=== PATIENT | male | born 1945 | race African-American/Black ===

== ENCOUNTER 2018-06-14 11:24 | Inpatient (IN) | payer MEDICARE ==
[~2018-06-14] VITALS: Ht 193 cm; Wt 81.9 kg
[2018-06-14] MEDS ORDERED: IMODIUM2 MG PO (11:40)
[2018-06-14] MEDS ORDERED: NITROSTAT0.4 MG SL (11:40)
[2018-06-14] MEDS ORDERED: PROMACTA25 MG PO (11:41)
[2018-06-14] MEDS ORDERED: NASONEX NASAL S17 GM NS (11:41)
[2018-06-14] MEDS ORDERED: BUMEX2 MG PO (11:42)
[2018-06-14] MEDS ORDERED: TRAZODONE HCL150 MG PO (11:43)
[2018-06-14] MEDS ORDERED: CATAPRES0.1 MG PO (11:43)
[2018-06-14] MEDS ORDERED: VERELAN180 MG PO (11:43)
[2018-06-14] MEDS ORDERED: PROTONIX40 MG PO (11:43)
[2018-06-14] MEDS ORDERED: RENVELA800 MG PO (11:44)
[2018-06-14] MEDS ORDERED: HUMULIN N100 U/ML SC (11:44)
[2018-06-14] MEDS ORDERED: PLAVIX75 MG PO (11:44)
[2018-06-14] MEDS ORDERED: LEVOXYL50 MCG PO (11:45)
[2018-06-14] MEDS ORDERED: CHRONULAC30 ML PO (11:45)
[2018-06-14] MEDS ORDERED: FLOMAX0.4 MG PO (11:45)
[2018-06-14] MEDS ORDERED: LIPITOR10 MG PO (11:46)
[2018-06-14] MEDS ORDERED: TYLENOL W/CODEI1 TAB PO (11:46)
--- NOTE | 2018-06-14 13:19 | NUR ---
RECEIVED REPORT FROM DARÍO IN ER.
--- NOTE | 2018-06-14 13:48 | NUR ---
RECEIVED PT TO ROOM 2105 VIA STRETCHER PT WAS ABLE TO AMBULATE FROM STRETCHER TO BED WITH ASSISTANCE, HAS UNSTEADY GATE. RT WRIST IV SL. FISTULA NOTED TO LT UPPER ARM. PT A/O X4, RESP EVEN AND NONLABORED ON RA. PT DENIES ANY CHEST PAIN AT THIS TIME. STATES THAT HE NEVER HAD CHEST PAIN. PT USES MAIL ORDER TO GET MEDICATIONS, PHARMACY LEFT BLANK. ORIENTED PT TO ROOM AND CALL LIGHT, DIALYSIS NURSE AT BEDSIDE, FIXING TO START DIALYSIS ON PT. WILL START PLAN OF CARE.
[2018-06-14 14:15] VITALS: BP 209/89; BMI 22.3
[2018-06-14 15:30] VITALS: BP 157/72
--- NOTE | 2018-06-14 16:55 | NUR ---
CALLED PHAN AND JASMINED HER THAT I NEED NPH FOR PT.
--- NOTE | 2018-06-14 19:30 | NUR ---
RECEIVED REPORT, WILL ASSUME CARE OF PT, ASKING FOR HEAT TO BE AJUSTED, BED IS LOW, SRX2, CALL LIGHT IN REACH, WILL CONTINUE PLAN OF CARE
[2018-06-14 20:00] VITALS: BP 144/55
[2018-06-14] MEDS ORDERED: NEURONTIN 300300 MG PO (21:13)
--- NOTE | 2018-06-14 22:47 | NUR ---
COMPLAINS OF PAIN, GAVE TYLENOL-CODIINE ORDER
[2018-06-15] VITALS: BP 136/55
[2018-06-15 04:00] VITALS: BP 145/56
[2018-06-15 05:11] LABS: BASOPHILS 0.4 % (0-2); EOSINOPHILS 1.6 % (0-7); HEMATOCRIT 32.1 % (42.0-54.0); HEMOGLOBIN 10.6 g/dL (13.5-17.5); IMMATURE GRANULOCYTES 0.2 % (0-5); LYMPHOCYTES 8.4 % (15-50); MCH 25.3 pg (26.0-34.0); MCV 76.6 fL (80.0-100.0); MEAN PLATELET VOLUME 10.7 fL (7.4-10.4); MONOCYTES 6.9 % (2-11); NEUTROPHILS 82.5 % (40-80); PLATELET COUNT 220 10x3/uL (130-400); RBC 4.19 10x6/uL (4.20-6.10); RDW 16.8 % (11.5-14.5); WBC 5.1 10x3/uL (4.8-10.8)
[2018-06-15 06:00] LABS: ALBUMIN 3.3 g/dL (3.4-5.0); ANION GAP 15.9 mmol/L (8-16); BILIRUBIN - DIRECT 0.12 mg/dL (0.00-0.30); BILIRUBIN - INDIRECT 0.31 mg/dL (0.00-1.00); BILIRUBIN - TOTAL 0.43 mg/dL (0.2-1.3); CALCIUM 9.2 mg/dL (8.5-10.1); CARBON DIOXIDE 25.8 mmol/L (21.0-32.0); CREATININE - SERUM 5.7 mg/dL (0.6-1.3); POTASSIUM - SERUM 4.7 mmol/L (3.5-5.1); PROTEIN - SERUM 6.1 g/dL (6.4-8.2); THYROID STIMULATING HORMONE 1.62 uIU/mL (0.36-3.74)
[2018-06-15 06:03] LABS: TROPONIN-I 0.136 ng/mL (0.000-0.060)
[2018-06-15 07:30] VITALS: BP 133/47
--- NOTE | 2018-06-15 08:20 | NUR ---
AM MEDS GIVEN AT THIS TIME. PT TOOK ALL MEDS WITH NO TROUBLE SWALLOWING. PT EATING BREAKFAST, DENIES ANY NEEDS AT THIS TIME. CALL LIGHT IN REACH, AT BEDSIDE, NAD NOTED, WILL CONTINUE TO MONITOR.
--- NOTE | 2018-06-15 11:19 | NUR ---
BLOOD SUGAR OF 157, PT REFUSED INSULIN AT THIS TIME. KARTHIKEYAN JOHNSON AT BEDSIDE TO ASSESS PT. CALL LIGHT IN REACH, AT BEDSIDE, NAD NOTED, WILL CONTINUE TO MONITOR.
[2018-06-15 11:30] VITALS: BP 169/59
[2018-06-15 12:04] LABS: CREATINE KINASE 205 UL (21-232); MAGNESIUM - SERUM 1.8 mg/dL (1.8-2.4)
[2018-06-15 12:09] LABS: TROPONIN-I 0.133 ng/mL (0.000-0.060)
--- NOTE | 2018-06-15 15:09 | NUR ---
RATIONAL FOR SCD'S EXPLAINED TO PT, PT REFUSED TO WEAR SCDS AT THIS TIME.
[2018-06-15 15:30] VITALS: BP 151/61
--- NOTE | 2018-06-15 19:30 | NUR ---
RECEIVED REPORT, WILL ASSUME CARE OF PT, DENIES ANY NEEDS AT THIS TIME, BED IS LOW, SRX3, CALL LIGHT IN REACH, AT BEDSIDE, WILL CONTINUE PLAN OF CARE
[2018-06-15 21:53] VITALS: BP 152/63
--- NOTE | 2018-06-16 02:29 | NUR ---
I have reviewed this patient and I concur with the Shift Assessment completed by the Licensed Practical Nurse today this shift.
--- NOTE | 2018-06-16 03:28 | NUR ---
ASSISTED PT TO RESTROOM AND BACK TO BED, GENEVA ALARM IS ON
[2018-06-16 04:53] VITALS: BP 96/73
[2018-06-16 07:13] LABS: BASOPHILS 0.2 % (0-2); EOSINOPHILS 1.5 % (0-7); HEMATOCRIT 29.2 % (42.0-54.0); HEMOGLOBIN 9.5 g/dL (13.5-17.5); IMMATURE GRANULOCYTES 0.2 % (0-5); LYMPHOCYTES 12.4 % (15-50); MCHC 32.5 g/dL (31.0-37.0); MCV 76.8 fL (80.0-100.0); MONOCYTES 7.9 % (2-11); NEUTROPHILS 77.8 % (40-80); PLATELET COUNT 200 10x3/uL (130-400); RDW 17.2 % (11.5-14.5); WBC 5.2 10x3/uL (4.8-10.8)
[2018-06-16 07:26] LABS: ANION GAP 14.9 mmol/L (8-16); CALCIUM 8.7 mg/dL (8.5-10.1); CARBON DIOXIDE 27.3 mmol/L (21.0-32.0); POTASSIUM - SERUM 5.2 mmol/L (3.5-5.1)
[2018-06-16 08:50] VITALS: BP 139/58
--- NOTE | 2018-06-16 09:39 | NUR ---
PT ESCORTED IN BED TO DIALYSIS VIA STAFF
--- NOTE | 2018-06-16 09:46 | NUR ---
PT TRANSFERED TO DIALYSIS AT THIS TIME.
[2018-06-16 12:37] VITALS: Ht 193 cm; Wt 81.9 kg
--- NOTE | 2018-06-16 12:58 | NUR ---
PT TRANSFERED BACK TO ROOM 2106, PT DENIES ANY NEEDS AT THIS TIME. AT BEDSIDE, NAD NOTED, WILL CONITNUE TO MONITOR.
--- NOTE | 2018-06-16 13:49 | NUR ---
PT REFUSED MRI. ASKED HIM IF I COULD TRY AGAIN TOMORROW HE SAID HE WASNT DOING THE MRI AT ALL. SPOKE WITH MIGUEL ZAVALA.
[2018-06-16 15:42] VITALS: BP 131/58
--- NOTE | 2018-06-16 15:43 | NUR ---
PT'S RT WRIST IV CAME OUT, CATHETER TIP INTACT. NEW 22G IV STARTED TO RT FA X2 STICKS. PT TOLERATED PROCEDURE WELL. REFUSES TO HAVE MRI DONE.
--- NOTE | 2018-06-16 16:54 | NUR ---
BLOOD SUGAR OF 196, 2UNITS OF HUMALOG AND 10UNITS OF NPH GIVEN AT THIS TIME TO THE BACK OF RT ARM. PT DENIES ANY NEEDS AT THIS TIME. AT BEDSIDE, CALL LIGHT IN REACH, GENEVA ALARM ON.
--- NOTE | 2018-06-16 17:22 | NUR ---
PT'S LIGHT GOING OFF, WENT TO CHECK TO SEE WHAT PT NEEDED. PT WANTS TO GETR IN THE SHOWER, PT HAS PULLED IV OUT. ASKED PT WHY HE PULLED IV OUT, PT STATED I DONT KNOW WHAT HAPPENED.
--- NOTE | 2018-06-16 19:30 | NUR ---
RECEIVED REPORT, WILL ASSUME CARE OF PT, PT SITTING IN CHAIR, DENIES ANY NEEDS, IS AT BEDSIDE, CALL LIGHT IN REACH, WILL CONTINUE PLAN OF CARE
[2018-06-16 21:03] VITALS: BP 149/56
--- NOTE | 2018-06-16 21:20 | NUR ---
ASKING FOR TYLENOL-CODIENE, GAVE ORDER
[2018-06-17 05:27] LABS: BASOPHILS 0.4 % (0-2); EOSINOPHILS 1.7 % (0-7); HEMOGLOBIN 10.1 g/dL (13.5-17.5); IMMATURE GRANULOCYTES 0.2 % (0-5); LYMPHOCYTES 12.6 % (15-50); MCH 25.6 pg (26.0-34.0); MCHC 33.7 g/dL (31.0-37.0); MCV 75.9 fL (80.0-100.0); MEAN PLATELET VOLUME 10.7 fL (7.4-10.4); NEUTROPHILS 77.1 % (40-80); PLATELET COUNT 213 10x3/uL (130-400); RBC 3.95 10x6/uL (4.20-6.10); RDW 16.9 % (11.5-14.5); WBC 5.2 10x3/uL (4.8-10.8)
[2018-06-17 05:40] LABS: ANION GAP 13.1 mmol/L (8-16); CALCIUM 8.9 mg/dL (8.5-10.1); CARBON DIOXIDE 30.1 mmol/L (21.0-32.0); CREATININE - SERUM 6.1 mg/dL (0.6-1.3); PHOSPHOROUS 4.3 mg/dL (2.5-4.9); POTASSIUM - SERUM 5.2 mmol/L (3.5-5.1)
[2018-06-17 06:25] VITALS: BP 167/73
--- NOTE | 2018-06-17 09:27 | NUR ---
PT UP WALKING AROUND NURSES STATION WITH PHYSICAL THERAPY. PT GAIT WEAK.
--- NOTE | 2018-06-17 09:28 | NUR ---
PT C/O PAIN IN LEGS. TYLENOL C CODIENE GIVEN.
--- NOTE | 2018-06-17 09:41 | NUR ---
GENEVA MAT ON. PT CONFUSED AT TIMES. AT BEDSIDE. VITALS STABLE, TOOK MEDS WITHOUT DIFFICULTY. NORMAL SINUS ON TELE. L AV FISTULA. NO IV ACCESS AT THIS TIME. ROOM AIR. NO FURTHER CONCERNS AT THIS TIME. BED LWOERED AND LOCKED. CL INR EACH. WILL CPOC.
--- NOTE | 2018-06-17 10:21 | NUR ---
PT TOOK MEDS WITHOUT DIFFICULTY. AT BEDSIDE. INFORMED PT HE WOULD NEED AN IV FOR MEDS AT 1300, PT AGREES. NO FURTHER CONCERNS AT THIS TIME.
--- NOTE | 2018-06-17 11:15 | NUR ---
Rehab Note- Acute Inpatient Rehab prescreen order received. Will visit with the patient. Will follow at this time. Thank you for this referral! Bessy Perla RN CLinical Liaison, [facility] Rehab
--- NOTE | 2018-06-17 14:54 | NUR ---
I have reviewed this patient and I concur with the Shift Assessment completed by the Licensed Practical Nurse today this shift.
--- NOTE | 2018-06-17 14:59 | NUR ---
PT CONFUSED ABOUT WHY LIGHTS ON TELE BOX WONT LIGHT UP. INFORMED PT THAT TELE IS WORKING. PT KEEPS MESSING WITH BOX. PUT GOWN ON PT AND PUT BOX IN GOWN POCKET. AT BEDSIDE. NO FURTHER CONCERNS AT THIS TIME. BED LOWERED AND LOCKED. CL IN REACH. WILL CPOC.
--- NOTE | 2018-06-17 15:44 | NUR ---
Rehab Note- The patient is too functional physically for inpatient acute rehab. Spoke to AMISH Peters & AMISH Pimentel. Thank you for this referral! Bessy Perla RN Clinical Liaison, [facility] Rehab
--- NOTE | 2018-06-17 16:36 | MORECARE ---
CASE MANAGEMENT DISCHARGE SUMMARY PATIENT: SYDNIE POPE UNIT: [id number] ADM DATE: 06/14/18 AGE: 72 : 43 SEX: M ROOM/BED: D.2106 AUTHOR: ESTHER WALLACE PHYSICIAN: REFERRING PHYSICIAN: CHAU MCFADDEN MD DATE OF SERVICE: 06/17/18 Discharge Plan Patient Name: SYDNIE POPE Facility: [facility]:[place] : 1945 Planned Disposition: Home with Home Health Anticipated Discharge Date: 06/17/18 Discharge Date: Expected LOS: 3 Initial Reviewer: [id number] Initial Review Date: 06/17/2018 Generated: 06/17/18 5:36 pm Comments DCP- Discharge Planning Updated by [email or web address]: Elodia Fall on 06/15/18 3:[address] LATE ENTRY 1410 CM VISITED THE PATIENT'S BEDSIDE. INTRODUCED MYSELF. PATIENT AND AT BEDSIDE. PATIENT GAVE PERMISSION FOR HIS TO SPEAK WITH CM. THE REQUEST CM TO REVISIT LATER IF POSSIBLE. DCPIA - Discharge Planning Initial Assessment Updated by [email or web address]: Jonathan Cunha on 06/17/18 4:35 pm * Is the patient Alert and Oriented? Yes * How many steps to enter\exit or inside your home? * PCP [facility] * Pharmacy [facility] * Preadmission Environment Home with Family * ADLs Independent * Equipment Cane Walker * Other Equipment [employer] NO MEDICAL EQUIPMENT PROVIDER PREFERENCE * List name and contact numbers for known caregivers / representatives who currently or will assist patient after discharge: GURINDERUGO LAGUERREER, SPOUSE, * Verbal permission to speak to the caregivers and representatives has been obtained from the patient. Yes * Community resources currently utilized Other * Please name any agencies selected above. OUTPATIENT DIALYSIS, [facility], [place], 0700, [facility] * Additional services required to return to the preadmission environment? No * Can the patient safely return to the preadmission environment? Yes * Has this patient been hospitalized within the prior 30 days at any hospital? No Patient Name: SYDNIE POPE Page [phone] at 1636 All edits/amendments must be made on the electronic document DICTATION DATE: 06/17/18 163 HOME HEALTH LPN: JANICE 06/17/18 1635 RPT#: [id number] DC DATE: STATUS: ADM IN [facility] [address] [place] [address] END OF REPORT
[2018-06-17 16:41] VITALS: BP 123/55
--- NOTE | 2018-06-17 16:44 | MORECARE ---
CASE MANAGEMENT DISCHARGE SUMMARY PATIENT: SYDNIE POPE UNIT: [id number] ADM DATE: 06/14/18 AGE: 72 : 43 SEX: M ROOM/BED: D.2106 AUTHOR: MADISON,DOC PHYSICIAN: REFERRING PHYSICIAN: CHAU MCFADDEN MD DATE OF SERVICE: 06/17/18 Discharge Plan Patient Name: SYDNIE POPE Facility: [facility]:[place] : 1945 Planned Disposition: Home with Home Health Anticipated Discharge Date: 06/17/18 Discharge Date: Expected LOS: 3 Initial Reviewer: [id number] Initial Review Date: 06/17/2018 Generated: 06/17/18 5:44 pm Comments DCP- Discharge Planning Updated by [email or web address]: Elodia Fall on 06/15/18 3:[address] LATE ENTRY 1410 CM VISITED THE PATIENT'S BEDSIDE. INTRODUCED MYSELF. PATIENT AND AT BEDSIDE. PATIENT GAVE PERMISSION FOR HIS TO SPEAK WITH CM. THE REQUEST CM TO REVISIT LATER IF POSSIBLE. DCPIA - Discharge Planning Initial Assessment Updated by [email or web address]: Jonathan Cunha on 06/17/18 4:35 pm * Is the patient Alert and Oriented? Yes * How many steps to enter\exit or inside your home? * PCP [facility]ZA * Pharmacy [facility] * Preadmission Environment Home with Family * ADLs Independent * Equipment Cane Walker * Other Equipment [employer] NO MEDICAL EQUIPMENT PROVIDER PREFERENCE * List name and contact numbers for known caregivers / representatives who currently or will assist patient after discharge: GURINDER LAGUERREER, SPOUSE, * Verbal permission to speak to the caregivers and representatives has been obtained from the patient. Yes * Community resources currently utilized Other * Please name any agencies selected above. OUTPATIENT DIALYSIS, [facility], [place], 0700, [facility] * Additional services required to return to the preadmission environment? No * Can the patient safely return to the preadmission environment? Yes * Has this patient been hospitalized within the prior 30 days at any hospital? No External Providers External Provider: [facility] Next Contact Date: 06/17/2018 Service Request Date: Service Type: Resolution: Reviewer: Comments: Last DP export: 06/17/18 3:36 p Patient Name: SYDNIE POPE Page 59550 at 1644 All edits/amendments must be made on the electronic document DICTATION DATE: 06/17/181642 FRAMING CARPENTER: JANICE 06/17/181642 RPT#: [id number] DC DATE: STATUS: ADM IN [facility] [address] [place] [address] END OF REPORT
--- NOTE | 2018-06-17 17:00 | MORECARE ---
CASE MANAGEMENT DISCHARGE SUMMARY PATIENT: SYDNIE POPE UNIT: [id number] ADM DATE: 06/14/18 AGE: 72 : 43 SEX: M ROOM/BED: D.2106 AUTHOR: ESTHER WALLACE PHYSICIAN: REFERRING PHYSICIAN: CHAU MCFADDEN MD DATE OF SERVICE: 06/17/18 Discharge Plan Patient Name: SYDNIE POPE Facility: [facility]:[place] : 1945 Planned Disposition: Home with Home Health Anticipated Discharge Date: 06/17/18 Discharge Date: Expected LOS: 3 Initial Reviewer: [email or web address] Initial Review Date: 06/17/2018 Generated: 06/17/18 6:00 pm Comments DCP- Discharge Planning Updated by [email or web address]: Jonathan Cunha on 06/17/18 3:[address] Patient Name: SYDNIE POPE Encounter No: [id number] : 1945 Primary Insurance: MEDICARE A & B Anticipated DC Date: 06-17-2018 Planned Disposition: Home with Home Health External Planned Provider: [facility] DCP follow-up note: CM MET WITH PT AND SPOUSE IN ROOM TO DISCUSS DISCHARGE PLANNING AND NEEDS. SYDNIE POPE provided verbal consent to discuss current and ongoing needs with/in the presence of: SPOUSE, GURINDER. PT LIVES AT HOME WITH SPOUSE, HAS 5 STEPS UP INTO THE HOME. PT HAS CANE THAT HE USES, ALSO HAS WALKER AND [employer] WITH NO MEDICAL EQUIPMENT PROVIDER PREFERENCE. CM DISCUSSED REHAB OPTIONS, PT STATES HE WANTS TO GO HOME. PT AND SPOUSE DISCUSSED REHAB OPTIONS. PT DECIDED HE WOULD LIKE TO BE EVALUATED FOR REHAB AT [place] IF POSSIBLE. PT WILL NOT CONSIDER GOING TO [facility] FOR REHAB. IMPORTANT MESSAGE FROM MEDICARE PROVIDED AND EXPLAINED. CM LATER REVIEWED CHART, SPOKE TO DR. VELA WHO INFORMED CM THAT HE IS READY TO DISCHARGE PT WHEN REHAB ARRANGEMENTS ARE WORKED OUT. INPATIENT REHAB AT [place] ASSESSMENT INDICATES PT IS TOO HIGH FUNCTIONING. CM MET WITH PT AND SPOUSE IN ROOM, DISCUSSED REHAB PRESCREENING RESULTS. PT STATES HE WANTS TO GO HOME, PT WANTS HOME HEALTH WITH [facility], WHOM HE HAS USED IN THE PAST. CM PROVIDED CHOICE LISTING AND PT SIGNED CONSENT FOR [facility]. PT'S SPOUSE ARRANGED RIDE HOME FOR TOMORROW, 06-18-18. CM CALLED [facility], , SPOKE TO [facility] WHO REPORTS IT MAY BE THE WEEKEND OR EARLY NEXT WEEK FOR ADMIT. CM NOTIFIED PT WHO IS IN AGREEMENT WITH PLAN. CM CALLED [facility], NOTIFIED OF ABOVE AND OBTAINED HOME HEALTH ORDER. CM FAXED ORDER TO [facility] AT [phone]. FOR DISCHARGE, NOTIFY [facility] AT [phone], FAX DISCHARGE INFORMATION TO [phone]. Jonathan Cunha, CASE MANAGEMENT DCP- Discharge Planning Updated by [email or web address]: Elodia Fall on 06/15/18 3:[address] LATE ENTRY 1410 CM VISITED THE PATIENT'S BEDSIDE. INTRODUCED MYSELF. PATIENT AND AT BEDSIDE. PATIENT GAVE PERMISSION FOR HIS TO SPEAK WITH CM. THE REQUEST CM TO REVISIT LATER IF POSSIBLE. DCPIA - Discharge Planning Initial Assessment Updated by [email or web address]: Jonathan Cunha on 06/17/18 4:35 pm * Is the patient Alert and Oriented? Yes * How many steps to enter\exit or inside your home? * PCP [facility] * [facility]acy [facility] * Preadmission Environment Home with Family * ADLs Independent * Equipment Cane Walker * Other Equipment [employer] NO MEDICAL EQUIPMENT PROVIDER PREFERENCE * List name and contact numbers for known caregivers / representatives who currently or will assist patient after discharge: GURINDER POPE, SPOUSE, * Verbal permission to speak to the caregivers and representatives has been obtained from the patient. Yes * Community resources currently utilized Other * Please name any agencies selected above. OUTPATIENT DIALYSIS, [facility], [place], 0700, [facility] DRIV[facility] * Additional services required to return to the preadmission environment? No * Can the patient safely return to the preadmission environment? Yes * Has this patient been hospitalized within the prior 30 days at any hospital? No Coverage Notice Reviewer: [id number] Adrian Cunha Notice Issued Date-Time: 06/17/2018 9:00 Notice Type: IM Discharge Notice Notice Delivered To: Family Member Relationship to Patient: Spouse Semi Automatic Sewing Machine Operator Name: JOSE DAVID POPE Delivery Method: HAND - Hand Delivered Tammi Days: Prior Verbal Notification: Recipient Understood Notice: Yes Recipient Signature: Yes Med Rec Note Co-signed by Attending: Coverage Notice Comment: Reviewer: [id number] - Jonathan Cunha Notice Issued Date-Time: 06/17/2018 16:15 Notice Type: Patient Choice Letter Notice Delivered To: Patient Relationship to Patient: Semi Automatic Sewing Machine Operator Name: Delivery Method: HAND - Hand Delivered Tammi Days: Prior Verbal Notification: Recipient Understood Notice: Yes Recipient Signature: Yes Med Rec Note Co-signed by Attending: Coverage Notice Comment: [facility] Last DP export: 06/17/18 3:44 p Patient Name: SYDNIE POPE Page 23690 at 1700 All edits/amendments must be made on the electronic document DICTATION DATE: 06/17/181699 GRANULATOR OPERATOR: JANICE 06/17/18 1700 RPT#: [id number] DC DATE: STATUS: ADM IN [facility] [address] [place] [address] END OF REPORT
[2018-06-17 21:13] VITALS: BP 146/58
[2018-06-18 01:54] VITALS: BP 140/53
--- NOTE | 2018-06-18 02:49 | NUR ---
PATIENT RESTING QUIETLY WITH EYES CLOSED, RESP EVEN AND UNLABORED.
--- NOTE | 2018-06-18 03:06 | NUR ---
PATIENT'S CAME OUT OF ROOM, ASKED "IS THE CAFETERIA OPEN ON THE WEEKENDS?" I ADVISED SPOUSE THAT IT WAS SATURDAY AND ONLY 0300 SO THE CAFETERIA WOULD BE OPEN. SPOUSE DIDN'T BELIEVE IT WAS 0300 AND ASKED TO SEE ANOTHER CLOCK.
[2018-06-18 04:39] LABS: BASOPHILS 0.4 % (0-2); EOSINOPHILS 1.4 % (0-7); HEMATOCRIT 29.1 % (42.0-54.0); HEMOGLOBIN 9.8 g/dL (13.5-17.5); IMMATURE GRANULOCYTES 0.2 % (0-5); LYMPHOCYTES 13.4 % (15-50); MCH 25.4 pg (26.0-34.0); MCHC 33.7 g/dL (31.0-37.0); MCV 75.4 fL (80.0-100.0); MEAN PLATELET VOLUME 11.2 fL (7.4-10.4); MONOCYTES 7.6 % (2-11); PLATELET COUNT 191 10x3/uL (130-400); RBC 3.86 10x6/uL (4.20-6.10)
[2018-06-18 04:51] LABS: ANION GAP 11.5 mmol/L (8-16); CALCIUM 8.5 mg/dL (8.5-10.1); CARBON DIOXIDE 28.6 mmol/L (21.0-32.0); PHOSPHOROUS 4.9 mg/dL (2.5-4.9); POTASSIUM - SERUM 5.1 mmol/L (3.5-5.1)
[2018-06-18 05:13] VITALS: BP 145/50
--- NOTE | 2018-06-18 07:45 | NUR ---
INITIAL ROUNDING ON THE PATIENT, WHITE BOARD UPDATED, CAREGIVERS INTRODUCED. THE PATIENT IS ASLEEP AND ON HIS RIGHT SIDE. SPOUSE AT THE BEDSIDE IN THE CHAIR. PATIENT HAS PLANNED DIALYSIS TODAY. BED ALARM TURNED ON AT THIS TIME.
[2018-06-18 08:18] VITALS: BP 172/75
--- NOTE | 2018-06-18 08:50 | NUR ---
INSTRUCTED THE SPOUSE TO CALL FOR A RIDE HOME DUE TO THE PATIENT BEING DISCHARGED. THE PATIENT WILL NOT HAVE DIALYSIS TODAY, SPOUSE WANTS HIM "TO GET BACK ON HIS NORMAL DIALYSIS SCHEDULE" THUS WILL HAVE DIALYSIS TOMORROW, SALLY ROE DIRECTOR, CALLED AND NOTIFIED THE DIALYSIS UNIT.
[2018-06-18 11:13] VITALS: BP 169/68
--- NOTE | 2018-06-18 12:59 | NUR ---
PATIENT HAS HIS RIDE HERE STILL WAITING. PATIENTS SPOUSE STATES "HE WILL GET ON SCHEDULE WITH HIS MEDICATIONS AND DIALYSIS, REFUSED ORAL MEDS AFTER DIALYSIS
--- NOTE | 2018-06-18 13:22 | MORECARE ---
CASE MANAGEMENT DISCHARGE SUMMARY PATIENT: SYDNIE POPE UNIT: [id number] ADM DATE: 06/14/18 AGE: 72 : 43 SEX: M ROOM/BED: D.2106 AUTHOR: ESTHER WALLACE PHYSICIAN: REFERRING PHYSICIAN: CHAU MCFADDEN MD DATE OF SERVICE: 06/18/18 Discharge Plan Patient Name: SYDNIE POPE Facility: [facility]:[place] : 1945 Planned Disposition: Home with Home Health Anticipated Discharge Date: 06/18/18 Discharge Date: Expected LOS: 4 Initial Reviewer: [id number] Initial Review Date: 06/17/2018 Generated: 06/18/18 2:22 pm Comments DCP- Discharge Planning Updated by [email or web address]: Jonathan Cunha on 06/17/18 3:[address] Patient Name: SYDNIE POPE Encounter No: [id number] : 1945 Primary Insurance: MEDICARE A & B Anticipated DC Date: 06-17-2018 Planned Disposition: Home with Home Health External Planned Provider: [facility] DCP follow-up note: CM MET WITH PT AND SPOUSE IN ROOM TO DISCUSS DISCHARGE PLANNING AND NEEDS. SYDNIE POPE provided verbal consent to discuss current and ongoing needs with/in the presence of: SPOUSE, GURINDER. PT LIVES AT HOME WITH SPOUSE, HAS 5 STEPS UP INTO THE HOME. PT HAS CANE THAT HE USES, ALSO HAS WALKER AND [employer] WITH NO MEDICAL EQUIPMENT PROVIDER PREFERENCE. CM DISCUSSED REHAB OPTIONS, PT STATES HE WANTS TO GO HOME. PT AND SPOUSE DISCUSSED REHAB OPTIONS. PT DECIDED HE WOULD LIKE TO BE EVALUATED FOR REHAB AT [place] IF POSSIBLE. PT WILL NOT CONSIDER GOING TO ASSISTED FOR REHAB. IMPORTANT MESSAGE FROM MED[employer]ARE PROVIDED AND EXPLAINED. CM LATER REVIEWED CHART, SPOKE TO DR. VELA WHO INFORMED CM THAT HE IS READY TO DISCHARGE PT WHEN REHAB ARRANGEMENTS ARE WORKED OUT. INPATIENT REHAB AT [place] ASSESSMENT INDICATES PT IS TOO HIGH FUNCTIONING. CM MET WITH PT AND SPOUSE IN ROOM, DISCUSSED REHAB PRESCREENING RESULTS. PT STATES HE WANTS TO GO HOME, PT WANTS HOME HEALTH WITH [facility], WHOM HE HAS USED IN THE PAST. CM PROVIDED CHOICE LISTING AND PT SIGNED CONSENT FOR [facility]. PT'S SPOUSE ARRANGED RIDE HOME FOR TOMORROW, 06-18-18. CM CALLED [facility], , SPOKE TO [facility] WHO REPORTS IT MAY BE THE WEEKEND OR EARLY NEXT WEEK FOR ADMIT. CM NOTIFIED PT WHO IS IN AGREEMENT WITH PLAN. CM CALLED [facility], NOTIFIED OF ABOVE AND OBTAINED HOME HEALTH ORDER. CM FAXED ORDER TO [facility] AT [phone]. FOR DISCHARGE, NOTIFY [facility] AT [phone], FAX DISCHARGE INFORMATION TO [phone]. Jonathan Cunha, CASE MANAGEMENT DCP- Discharge Planning Updated by [email or web address]: Elodia Fall on 06/15/18 3:[address] LATE ENTRY 1410 CM VISITED THE PATIENT'S BEDSIDE. INTRODUCED MYSELF. PATIENT AND AT BEDSIDE. PATIENT GAVE PERMISSION FOR HIS TO SPEAK WITH CM. THE REQUEST CM TO REVISIT LATER IF POSSIBLE. DCPIA - Discharge Planning Initial Assessment Updated by [email or web address]: Jonathan Cunha on 06/17/18 4:35 pm * Is the patient Alert and Oriented? Yes * How many steps to enter\exit or inside your home? * PCP [facility] ESPARZA * [facility]acy [facility] * Preadmission Environment Home with Family * ADLs Independent * Equipment Cane Walker * Other Equipment [employer] NO MEDICAL EQUIPMENT PROVIDER PREFERENCE * List name and contact numbers for known caregivers / representatives who currently or will assist patient after discharge: GURINDER POPE, SPOUSE, * Verbal permission to speak to the caregivers and representatives has been obtained from the patient. Yes * Community resources currently utilized Other * Please name any agencies selected above. OUTPATIENT DIALYSIS, [facility], [facility], 0[facility], [facility] * Additional services required to return to the preadmission environment? No * Can the patient safely return to the preadmission environment? Yes * Has this patient been hospitalized within the prior 30 days at any hospital? No Coverage Notice Reviewer: [id number] Adrian Cunha Notice Issued Date-Time: 06/17/2018 9:00 Notice Type: IM Discharge Notice Notice Delivered To: Family Member Relationship to Patient: Spouse [employer] Name: JOSE DAVID POPE Delivery Method: HAND - Hand Delivered Tammi Days: Prior Verbal Notification: Recipient Understood Notice: Yes Recipient Signature: Yes Med Rec Note Co-signed by Attending: Coverage Notice Comment: Reviewer: [id number] - Jonathan Cunha Notice Issued Date-Time: 06/17/2018 16:15 Notice Type: Patient Choice Letter Notice Delivered To: Patient Relationship to Patient: [employer] Name: Delivery Method: HAND - Hand Delivered Tammi Days: Prior Verbal Notification: Recipient Understood Notice: Yes Recipient Signature: Yes Med Rec Note Co-signed by Attending: Coverage Notice Comment: [facility] Last DP export: 06/17/18 4:00 p Patient Name: SYDNIE POPE Page [phone] at 1322 All edits/amendments must be made on the electronic document DICTATION DATE: 06/18/18 1322 CENTRIFUGE OPERATOR: JANICE 06/18/18 1322 RPT#: [id number] DC DATE: STATUS: ADM IN [facility] [address] [place] [address] END OF REPORT
--- NOTE | 2018-06-18 13:29 | MORECARE ---
CASE MANAGEMENT DISCHARGE SUMMARY PATIENT: SYDNIE POPE UNIT: [id number] ADM DATE: 06/14/18 AGE: 72 : 43 SEX: M ROOM/BED: D.2106 AUTHOR: ESTHER WALLACE PHYSICIAN: REFERRING PHYSICIAN: CHAU MCFADDEN MD DATE OF SERVICE: 06/18/18 Discharge Plan Patient Name: SYDNIE POPE Facility: [facility]:[place] : 1945 Planned Disposition: Home with Home Health Anticipated Discharge Date: 06/18/18 Discharge Date: Expected LOS: 4 Initial Reviewer: [id number] Initial Review Date: 06/17/2018 Generated: 06/18/18 2:29 pm Comments DCP- Discharge Planning Updated by [email or web address]: Jonathan Cunha on 06/17/18 3:[address] Patient Name: SYDNIE POPE Encounter No: [id number] : 1945 Primary Insurance: MEDICARE A & B Anticipated DC Date: 06-17-2018 Planned Disposition: Home with Home Health External Planned Provider: [facility] DCP follow-up note: CM MET WITH PT AND SPOUSE IN ROOM TO DISCUSS DISCHARGE PLANNING AND NEEDS. SYDNIE POPE provided verbal consent to discuss current and ongoing needs with/in the presence of: SPOUSE, GURIDNER. PT LIVES AT HOME WITH SPOUSE, HAS 5 STEPS UP INTO THE HOME. PT HAS CANE THAT HE USES, ALSO HAS WALKER AND [employer] WITH NO MEDICAL EQUIPMENT PROVIDER PREFERENCE. CM DISCUSSED REHAB OPTIONS, PT STATES HE WANTS TO GO HOME. PT AND SPOUSE DISCUSSED REHAB OPTIONS. PT DECIDED HE WOULD LIKE TO BE EVALUATED FOR REHAB AT [place] IF POSSIBLE. PT WILL NOT CONSIDER GOING [place] FOR REHAB. IMPORTANT MESSAGE FROM MEDICARE PROVIDED AND EXPLAINED. CM LATER REVIEWED CHART, SPOKE TO DR. VELA WHO INFORMED CM THAT HE IS READY TO DISCHARGE PT WHEN REHAB ARRANGEMENTS ARE WORKED OUT. INPATIENT REHAB AT [place] ASSESSMENT INDICATES PT IS TOO HIGH FUNCTIONING. CM MET WITH PT AND SPOUSE IN ROOM, DISCUSSED REHAB PRESCREENING RESULTS. PT STATES HE WANTS TO GO HOME, PT WANTS HOME HEALTH WITH [facility], WHOM HE HAS USED IN THE PAST. CM PROVIDED CHOICE LISTING AND PT SIGNED CONSENT FOR [facility]. PT'S SPOUSE ARRANGED RIDE HOME FOR TOMORROW, 06-18-18. CM CALLED [facility], , SPOKE TO [facility] WHO REPORTS IT MAY BE THE WEEKEND OR EARLY NEXT WEEK FOR ADMIT. CM NOTIFIED PT WHO IS IN AGREEMENT WITH PLAN. CM CALLED [facility], NOTIFIED OF ABOVE AND OBTAINED HOME HEALTH ORDER. CM FAXED ORDER TO [facility] AT [phone]. FOR DISCHARGE, NOTIFY [facility] AT [phone], FAX DISCHARGE INFORMATION TO [phone]. Jonathan Cunha, CASE MANAGEMENT DCP- Discharge Planning Updated by [email or web address]: Elodia Fall on 06/15/18 3:[address] LATE ENTRY 1410 CM VISITED THE PATIENT'S BEDSIDE. INTRODUCED MYSELF. PATIENT AND AT BEDSIDE. PATIENT GAVE PERMISSION FOR HIS TO SPEAK WITH CM. THE REQUEST CM TO REVISIT LATER IF POSSIBLE. DCPIA - Discharge Planning Initial Assessment Updated by [email or web address]: Jonathan Cunha on 06/17/18 4:35 pm * Is the patient Alert and Oriented? Yes * How many steps to enter\exit or inside your home? * PCP [facility] * [facility]acy [facility] * Preadmission Environment Home with Family * ADLs Independent * Equipment Cane Walker * Other Equipment [employer] NO MEDICAL EQUIPMENT PROVIDER PREFERENCE * List name and contact numbers for known caregivers / representatives who currently or will assist patient after discharge: GURINDER POPE, SPOUSE, * Verbal permission to speak to the caregivers and representatives has been obtained from the patient. Yes * Community resources currently utilized Other * Please name any agencies selected above. OUTPATIENT DIALYSIS, [facility], [facility], 0700, [facility] * Additional services required to return to the preadmission environment? No * Can the patient safely return to the preadmission environment? Yes * Has this patient been hospitalized within the prior 30 days at any hospital? No Coverage Notice Reviewer: [email or web address] Adrian Cunha Notice Issued Date-Time: 06/17/2018 9:00 Notice Type: IM Discharge Notice Notice Delivered To: Family Member Relationship to Patient: Spouse Magneto Electrician Name: JOSE DAVID POPE Delivery Method: HAND - Hand Delivered Tammi Days: Prior Verbal Notification: Recipient Understood Notice: Yes Recipient Signature: Yes Med Rec Note Co-signed by Attending: Coverage Notice Comment: Reviewer: [id number] - Jonathan Cunha Notice Issued Date-Time: 06/17/2018 16:15 Notice Type: Patient Choice Letter Notice Delivered To: Patient Relationship to Patient: Magneto Electrician Name: Delivery Method: HAND - Hand Delivered Tammi Days: Prior Verbal Notification: Recipient Understood Notice: Yes Recipient Signature: Yes Med Rec Note Co-signed by Attending: Coverage Notice Comment: [facility] Last DP export: 06/18/18 12:22 p Patient Name: SYDNIE POPE Page 34991 at 1329 All edits/amendments must be made on the electronic document DICTATION DATE: 06/18/181327 SAIL CUTTER: JANICE 06/18/18 1328 RPT#: [id number] DC DATE: STATUS: ADM IN [facility] [address] [place] [address] END OF REPORT
--- NOTE | 2018-06-18 13:37 | MORECARE ---
CASE MANAGEMENT DISCHARGE SUMMARY PATIENT: SYDNIE POPE UNIT: [id number] ADM DATE: 06/14/18 AGE: 72 : 43 SEX: M ROOM/BED: D.2106 AUTHOR: ESTHER WALLACE PHYSICIAN: REFERRING PHYSICIAN: CHAU MCFADDEN MD DATE OF SERVICE: 06/18/18 Discharge Plan Patient Name: SYDNIE POPE Facility: [facility]:[place] : 1945 Planned Disposition: Home with Home Health Anticipated Discharge Date: 06/18/18 Discharge Date: Expected LOS: 4 Initial Reviewer: [id number] Initial Review Date: 06/17/2018 Generated: 06/18/18 2:37 pm Comments DCP- Discharge Planning Updated by [email or web address]: Jonathan Cunha on 06/18/18 12:[address] Patient Name: SYDNIE POPE Encounter No: [id number] : 1945 Primary Insurance: MEDICARE A & B Anticipated DC Date: 06-18-2018 Planned Disposition: Home with Home Health External Planned Provider: [facility] DCP follow-up note: CM RECEIVED DISCHARGE ORDER, NOTIFIED [facility] AT [phone], FAXED DISCHARGE INFORMATION TO [phone]. ACTIVE DIRECTORY SPECIALIST NURSE NOTIFIED. ZHEN Stephenson DCP- Discharge Planning Updated by [email or web address]: Jonathan Cunha on 06/17/18 3:[address] Patient Name: SYDNIE POPE Encounter No: [id number] : 1945 Primary Insurance: MEDICARE A & B Anticipated DC Date: 06-17-2018 Planned Disposition: Home with Home Health External Planned Provider: [facility] DCP follow-up note: CM MET WITH PT AND SPOUSE IN ROOM TO DISCUSS DISCHARGE PLANNING AND NEEDS. SYDNIE POPE provided verbal consent to discuss current and ongoing needs with/in the presence of: SPOUSE, GURINDER. PT LIVES AT HOME WITH SPOUSE, HAS 5 STEPS UP INTO THE HOME. PT HAS CANE THAT HE USES, ALSO HAS WALKER AND [employer] WITH NO MEDICAL EQUIPMENT PROVIDER PREFERENCE. CM DISCUSSED REHAB OPTIONS, PT STATES HE WANTS TO GO HOME. PT AND SPOUSE DISCUSSED REHAB OPTIONS. PT DECIDED HE WOULD LIKE TO BE EVALUATED FOR REHAB AT [place] IF POSSIBLE. PT WILL NOT CONSIDER GOING TO [facility]ARE HOME FOR REHAB. IMPORTANT MESSAGE FROM MEDICARE PROVIDED AND EXPLAINED. CM LATER REVIEWED CHART, SPOKE TO DR. VELA WHO INFORMED CM THAT HE IS READY TO DISCHARGE PT WHEN REHAB ARRANGEMENTS ARE WORKED OUT. INPATIENT REHAB AT [place] ASSESSMENT INDICATES PT IS TOO HIGH FUNCTIONING. CM MET WITH PT AND SPOUSE IN ROOM, DISCUSSED REHAB PRESCREENING RESULTS. PT STATES HE WANTS TO GO HOME, PT WANTS HOME HEALTH WITH [facility], WHOM HE HAS USED IN THE PAST. CM PROVIDED CHOICE LISTING AND PT SIGNED CONSENT FOR [facility]. PT'S SPOUSE ARRANGED RIDE HOME FOR TOMORROW, 06-18-18. CM CALLED [facility], , SPOKE TO [facility] WHO REPORTS IT MAY BE THE WEEKEND OR EARLY NEXT WEEK FOR ADMIT. CM NOTIFIED PT WHO IS IN AGREEMENT WITH PLAN. CM CALLED [facility], NOTIFIED OF ABOVE AND OBTAINED HOME HEALTH ORDER. CM FAXED ORDER TO [facility] AT [phone]. FOR DISCHARGE, NOTIFY [facility] AT [phone], FAX DISCHARGE INFORMATION TO [phone]. Jonathan Cunha, CASE MANAGEMENT DCP- Discharge Planning Updated by [id number]: Elodia Fall on 06/15/18 3:[address] LATE ENTRY 1410 CM VISITED THE PATIENT'S BEDSIDE. INTRODUCED MYSELF. PATIENT AND AT BEDSIDE. PATIENT GAVE PERMISSION FOR HIS TO SPEAK WITH CM. THE REQUEST CM TO REVISIT LATER IF POSSIBLE. DCPIA - Discharge Planning Initial Assessment Updated by [email or web address]: Jonathan Cunha on 06/17/18 4:35 pm * Is the patient Alert and Oriented? Yes * How many steps to enter\exit or inside your home? * PCP [facility] * [facility] * Preadmission Environment Home with Family * ADLs Independent * Equipment Cane Walker * Other Equipment [employer] NO MEDICAL EQUIPMENT PROVIDER PREFERENCE * List name and contact numbers for known caregivers / representatives who currently or will assist patient after discharge: GURINDER POPE, SPOUSE, * Verbal permission to speak to the caregivers and representatives has been obtained from the patient. Yes * Community resources currently utilized Other * Please name any agencies selected above. OUTPATIENT DIALYSIS, [facility], [facility], 0[address], [facility] * Additional services required to return to the preadmission environment? No * Can the patient safely return to the preadmission environment? Yes * Has this patient been hospitalized within the prior 30 days at any hospital? No Coverage Notice Reviewer: [id number] Cunha Notice Issued Date-Time: 06/17/2018 9:00 Notice Type: IM Discharge Notice Notice Delivered To: Family Member Relationship to Patient: Spouse Batch Mixer Operator Name: JOSE DAVID POPE Delivery Method: HAND - Hand Delivered Tammi Days: Prior Verbal Notification: Recipient Understood Notice: Yes Recipient Signature: Yes Med Rec Note Co-signed by Attending: Coverage Notice Comment: Reviewer: [id number] Cunha Notice Issued Date-Time: 06/17/2018 16:15 Notice Type: Patient Choice Letter Notice Delivered To: Patient Relationship to Patient: Batch Mixer Operator Name: Delivery Method: HAND - Hand Delivered Tammi Days: Prior Verbal Notification: Recipient Understood Notice: Yes Recipient Signature: Yes Med Rec Note Co-signed by Attending: Coverage Notice Comment: [facility] Last DP export: 06/18/18 12:29 p Patient Name: SYDNIE POPE Page 00370 at 1337 All edits/amendments must be made on the electronic document DICTATION DATE: 06/18/181335 ASSISTANT DIRECTOR OF PLANT OPERATIONS: JANICE 06/18/181335 RPT#: [id number] DC DATE: STATUS: ADM IN [facility] [address] [place] [address] END OF REPORT
--- NOTE | 2018-06-19 07:23 | MORECARE ---
CASE MANAGEMENT DISCHARGE SUMMARY PATIENT: SYDNIE POPE UNIT: [id number] ADM DATE: 06/14/18 AGE: 72 : 43 SEX: M ROOM/BED: D.2106 AUTHOR: ESTHER WALLACE PHYSICIAN: REFERRING PHYSICIAN: CHAU MCFADDEN MD DATE OF SERVICE: 06/19/18 Discharge Plan Patient Name: SYDNIE POPE Facility: [facility]:[place] : 1945 Planned Disposition: Home with Home Health Anticipated Discharge Date: 06/18/18 Discharge Date: 06/18/2018 Expected LOS: 4 Initial Reviewer: [email or web address] Initial Review Date: 06/17/2018 Generated: 06/19/18 8:23 am Comments DCP- Discharge Planning Updated by [email or web address]: Jonathan Cunha on 06/18/18 12:[address] Patient Name: SYDNIE POPE Encounter No: [id number] : 1945 Primary Insurance: MEDICARE A & B Anticipated DC Date: 06-18-2018 Planned Disposition: Home with Home Health External Planned Provider: [facility] DCP follow-up note: CM RECEIVED DISCHARGE ORDER, NOTIFIED [facility] AT [phone], FAXED DISCHARGE INFORMATION TO [phone]. FINISHER BRUSH NURSE NOTIFIED. ZHEN Stephenson DCP- Discharge Planning Updated by [id number]: Jonathan Cunha on 06/17/18 3:[address] Patient Name: SYDNIE POPE Encounter No: [id number] : 1945 Primary Insurance: MEDICARE A & B Anticipated DC Date: 06-17-2018 Planned Disposition: Home with Home Health External Planned Provider: [facility] DCP follow-up note: CM MET WITH PT AND SPOUSE IN ROOM TO DISCUSS DISCHARGE PLANNING AND NEEDS. SYDNIE POPE provided verbal consent to discuss current and ongoing needs with/in the presence of: SPOUSE, GURINDER. PT LIVES AT HOME WITH SPOUSE, HAS 5 STEPS UP INTO THE HOME. PT HAS CANE THAT HE USES, ALSO HAS WALKER AND [employer] WITH NO MEDICAL EQUIPMENT PROVIDER PREFERENCE. CM DISCUSSED REHAB OPTIONS, PT STATES HE WANTS TO GO HOME. PT AND SPOUSE DISCUSSED REHAB OPTIONS. PT DECIDED HE WOULD LIKE TO BE EVALUATED FOR REHAB AT [place] IF POSSIBLE. PT WILL NOT CONSIDER GOING TO RETIREMENT FOR REHAB. IMPORTANT MESSAGE FROM MEDICARE PROVIDED AND EXPLAINED. CM LATER REVIEWED CHART, SPOKE TO DR. VELA WHO INFORMED CM THAT HE IS READY TO DISCHARGE PT WHEN REHAB ARRANGEMENTS ARE WORKED OUT. INPATIENT REHAB AT [place] ASSESSMENT INDICATES PT IS TOO HIGH FUNCTIONING. CM MET WITH PT AND SPOUSE IN ROOM, DISCUSSED REHAB PRESCREENING RESULTS. PT STATES HE WANTS TO GO HOME, PT WANTS HOME HEALTH WITH [facility], WHOM HE HAS USED IN THE PAST. CM PROVIDED CHOICE LISTING AND PT SIGNED CONSENT FOR [facility]. PT'S SPOUSE ARRANGED RIDE HOME FOR TOMORROW, 06-18-18. CM CALLED [facility], , SPOKE TO [facility] WHO REPORTS IT MAY BE THE WEEKEND OR EARLY NEXT WEEK FOR ADMIT. CM NOTIFIED PT WHO IS IN AGREEMENT WITH PLAN. CM CALLED [facility], NOTIFIED OF ABOVE AND OBTAINED HOME HEALTH ORDER. CM FAXED ORDER TO [facility] AT [phone]. FOR DISCHARGE, NOTIFY [facility] AT [phone], FAX DISCHARGE INFORMATION TO [phone]. Jonathan Cunha, CASE MANAGEMENT DCP- Discharge Planning Updated by [email or web address]: Elodia Fall on 06/15/18 3:[address] LATE ENTRY 1410 CM VISITED THE PATIENT'S BEDSIDE. INTRODUCED MYSELF. PATIENT AND AT BEDSIDE. PATIENT GAVE PERMISSION FOR HIS TO SPEAK WITH CM. THE REQUEST CM TO REVISIT LATER IF POSSIBLE. DCPIA - Discharge Planning Initial Assessment Updated by [email or web address]: Jonathan Cunha on 06/17/18 4:35 pm * Is the patient Alert and Oriented? Yes * How many steps to enter\exit or inside your home? * PCP [facility] * [facility]acy [facility] * Preadmission Environment Home with Family * ADLs Independent * Equipment Cane Walker * Other Equipment [employer] NO MEDICAL EQUIPMENT PROVIDER PREFERENCE * List name and contact numbers for known caregivers / representatives who currently or will assist patient after discharge: GURINDER POPE, SPOUSE, * Verbal permission to speak to the caregivers and representatives has been obtained from the patient. Yes * Community resources currently utilized Other * Please name any agencies selected above. OUTPATIENT DIALYSIS, [facility], [facility], 0[address], [facility] * Additional services required to return to the preadmission environment? No * Can the patient safely return to the preadmission environment? Yes * Has this patient been hospitalized within the prior 30 days at any hospital? No Coverage Notice Reviewer: [id number] Cunha Notice Issued Date-Time: 06/17/2018 9:00 Notice Type: IM Discharge Notice Notice Delivered To: Family Member Relationship to Patient: Spouse Sizer Machine Name: JOSE DAVID POPE Delivery Method: HAND - Hand Delivered Tammi Days: Prior Verbal Notification: Recipient Understood Notice: Yes Recipient Signature: Yes Med Rec Note Co-signed by Attending: Coverage Notice Comment: Reviewer: [id number] Cunha Notice Issued Date-Time: 06/17/2018 16:15 Notice Type: Patient Choice Letter Notice Delivered To: Patient Relationship to Patient: Sizer Machine Name: Delivery Method: HAND - Hand Delivered Tammi Days: Prior Verbal Notification: Recipient Understood Notice: Yes Recipient Signature: Yes Med Rec Note Co-signed by Attending: Coverage Notice Comment: [facility] Last DP export: 06/18/18 12:37 p Patient Name: SYDNIE POPE Page 81999 at 0723 All edits/amendments must be made on the electronic document DICTATION DATE: 06/19/18721 ABRASIVE COATING MACHINE OPERATOR: JANICE 06/19/18721 RPT#: [id number] DC DATE:06/18/18 STATUS: DIS IN [facility] [address] [place] [address] END OF REPORT
== END 2018-06-18 16:12 | disposition home health service (06) | DRG 947 ==
LOC: D.ER 11:24 → EDBD 11:24 → D.M2 13:10
PROVIDERS: ADMIT Internal Medicine Nephrology; ATTEND Internal Medicine Nephrology
PROC: 5A1D70Z Performance of Urinary Filtration, Intermittent, Less than 6 Hours Per Day (ICD-10-PCS; principal; 2018-06-14)
DX: R53.1 Weakness (principal); N18.6 End stage renal disease; I12.0 Hypertensive chronic kidney disease with stage 5 chronic kidney disease or end stage renal disease; J81.1 Chronic pulmonary edema; R62.7 Adult failure to thrive; Z68.22 Body mass index [BMI] 22.0-22.9, adult; E11.22 Type 2 diabetes mellitus with diabetic chronic kidney disease; Z99.2 Dependence on renal dialysis; I25.119 Atherosclerotic heart disease of native coronary artery with unspecified angina pectoris; K21.9 Gastro-esophageal reflux disease without esophagitis; F03.90 Unspecified dementia, unspecified severity, without behavioral disturbance, psychotic disturbance, mood disturbance, and anxiety; D63.1 Anemia in chronic kidney disease; E83.39 Other disorders of phosphorus metabolism; R27.0 Ataxia, unspecified; E87.5 Hyperkalemia

== ENCOUNTER 2018-06-26 15:41 | Inpatient (IN) | payer MEDICARE ==
[~2018-06-26] VITALS: Ht 193 cm; Wt 92.1 kg
[2018-06-26] VITALS (7 sets, daily range): BP systolic 175–210; BP diastolic 73–104
--- NOTE | ~2018-06-26 | HEMODYNAMI ---
PATIENT:SYDNIE POPE MEDICAL RECORD: [id number] : 41 LOCATION:[address] ADMISSION DATE: 06/26/18 Generatedon:06/27/201814:13 Patient name: SYDNIE POPE Patient #: [id number] SSN: DO B: 1945 Date of study: 06/27/2018 Page: Of Hemodynamic Procedure Report Patient Data Patient Demographics Procedure consent was obtained First Name: SYDNIE Gender: Male Last Name: TOSHIA : 1945 Patient #: [id number] Age: 72 year(s) Race: Black Additional ID: [id number] Contact details Address: [address] [place] [address] State: [place] City: [place] Zip code: [address] Admission Admission Data Admission Date: 06/26/2018 Admission Time: 16:53 Room #: 2116 Weight (lbs.): 202.83 Weight (kg.): 92 Lab Results Lab Result Date: 06/27/2018 Lab Result Time: 0:00 Biochemistry Name Units Result Min Max BUN mg/dl 80 --(----)-* 7 18 Creatinine mg/dl 7.2 --(----)-* 0.6 1.3 CBC Name Units Result Min Max Hemoglobin g/dl 9.2 *-(----)-- 13.5 17.5 Platelets 10^3/l 151 --(*---)-- 130 400 Procedure Procedure Types Cath Procedure Diagnostic Procedure LHC LHC w/Coronaries w/Grafts PCI Procedure PTCA PTCA Initial Procedure Description Procedure Date Procedure Date: 06/27/2018 Procedure Start Time: 13:43 Procedure End Time: 14:11 Procedure Staff Name Function Jhonatan Saucedo MD Performing Physician Kingsley Lopez RN Digital Marketing Associate Wally Henson RT Scrub Timothy Mccain RN Nurse Cooper De Dios RT Monitor Procedure Data Cath Procedure Fluoroscopy Diagnostic fluoroscopy Total fluoroscopy Time: 4.6 time: 4.6 min min Diagnostic fluoroscopy Total fluoroscopy dose: 574 dose: 574 mGy mGy Contrast Material Contrast Material Type Amount (ml) Isovue 300 86 Entry Location Entry Primary Successful Side Size Upsize Upsize Entry Closure Succes sful Closure Location (Fr) 1 (Fr) 2 (Fr) Remarks Device Remarks Femoral Right 5 Fr Exoseal vein Femoral Right 5 Fr 6 Fr Exoseal artery Short Estimated blood loss: 10 ml Diagnostic catheters Device Type Used For End Catheter Placement MULTIPACK JL 4.0 5Fr Procedure catheter MULTIPACK 3DRC 5Fr Procedure catheter MULTIPACK Pigtail 5 Fr Procedure catheter Procedure Complications No complications Procedure Medications Medication Administration Route Dosage 0.9% NaCl I.V. 10 ml/hr Oxygen etCO2 Nasal cannula 2 l/min Heparin Flush Bag added to field 2 bags (1000units/500ml NS) Lidocaine 2% 20 Versed I.V. 1 mg Fentanyl I.V. 50 mcg Heparin Bolus I.V. 5000 units Hemodynamics Rest HGB: 9.2 (g/dl) Heart Rate: 59 (bpm) Pressure Samples Time Site Value (mmHg) Purpose Heart Use Rate(bpm) 13:50 AO 145/67(93) Snapshot 64 13:57 LV 148/8,24 Snapshot 67 13:58 AO 149/43(84) Pullback 65 13:58 LV 138/-1,31 Pullback 65 14:04 AO 119/51(77) Snapshot 70 Gradients Valve Time Site 1 Site 2 Mean SEP/DFP Peak To Heart Use (mmHg) (sec/min) Peak Rate (mmHg) (bpm) Aortic 13:58 LV AO 0 65 138/-1,31 149/43(84) Calculations Valve P-P Mean Valve Index Valve Source Name Gradient Area Flow (cm2) Aortic 0 0 Snapshots Pre Cath Intra NCS Post Cath Vital Signs Time Heart Resp SPO2 etCO2 NIBP (mmHg) Rhythm Pain Sedation Rate (ipm) (%) (mmHg) Status Level (bpm) 13:36:56 58 13 100 0 151/74(126) NSR 0 (11) 10(A) , No pain 13:41:17 57 15 98 21 141/60(117) NSR 0 (11) 10(A) , No pain 13:45:30 61 24 96 12 140/78(119) NSR 0 (11) 10(A) , No pain 13:49:40 66 16 93 20.3 148/87(140) NSR 0 (11) 9(A) , No pain 13:53:56 65 18 98 30.8 155/75(117) NSR 0 (11) 9(A) , No pain 13:58:13 67 14 92 36.9 128/82(108) NSR 0 (11) 9(A) , No pain 14:02:20 68 17 97 24.1 140/80(119) NSR 0 (11) 9(A) , No pain 14:06:30 71 17 97 46.7 131/72(112) NSR 0 (11) 9(A) , No pain 14:10:40 72 17 97 18 123/74(113) NSR 0 (11) 9(A) , No pain Medications Time Medication Route Dose Verified Delivered Reason Notes Effectiveness by by 13:35:11 0.9% NaCl I.V. 10 Per physician ml/hr Kalyn Mccain RN RN 13:35:22 Oxygen etCO2 2 for low 02 sats Nasal l/min Kalyn Mccain cannula RN RN 13:35:32 Heparin Flush added 2 used for Bag to bags Kalyn Mccain procedure (1000units/500ml field RN RN NS) 13:35:40 Lidocaine 2% 20ml for local vial Kalyn Mccain anesthetic RN RN 13:43:20 Versed I.V. 1 mg for sedation Kalyn Mccain RN RN 13:43:38 Fentanyl I.V. 50 for sedation mcg Kalyn Mccain RN RN 14:03:16 Heparin Bolus I.V. 5000 for units Kalyn Mccain anticoagulation RN sap basis Log Time Note 13:00:43 Kingsley Lopez RN sent for patient. Start room use. 13:19:44 Time tracking: Regular hours (M-F 7:00 - 5:00) 13:19:48 Plan of Care:Hemodynamics will remain stable., Cardiac rhythm will remain stable., Comfort level will be maintained., Respiratory function will remain adequate., Patient/ family verbilizes understanding of procedure., Procedure tolerated without complication., Recovers from procedure without complications.. 13:24:19 Patient received from Med II to [facility] 1 Alert and oriented. Tansferred to table in Supine position. 13:24:20 Warm blankets applied, and cynthia hugger turned on for patient comfort. 13:24:20 Correct patient and procedure confirmed by team. 13:24:22 Signed procedure consent form obtained from patient. 13:24:23 ECG and BP/O2 sat monitors applied to patient. 13:24:24 Pre-procedure instructions explained to patient. 13:24:25 Pre-op teaching completed and patient verbalized understanding. 13:35:11 0.9% NaCl 10 ml/hr I.V. was administered by Timothy Mccain RN; Per physician; 13:35:22 Oxygen 2 l/min etCO2 Nasal cannula was administered by Timothy Mccain RN; for low 02 sats; 13:35:32 Heparin Flush Bag (1000units/500ml NS) 2 bags added to field was administered by Timothy Mccain RN; used for procedure; 13:35:40 Lidocaine 2% 20ml vial was administered by Timothy Mccain RN; for local anesthetic; 13:35:45 Vital chart was started 13:36:16 Baseline sample Acquired. 13:36:41 Rhythm: sinus bradycardia 13:36:43 Full Disclosure recording started 13:36:49 H&P Date Dictated: 06/27/2018 Within 30 days and on chart.. 13:36:52 Patient NPO since Midnight. 13:36:54 Is the patient allergic to Iodine/contrast media? No. 13:36:56 Is patient on blood thinner?Yes 13:36:58 ACC The patient was administered the following blood thiners within the last 24 hours: ACCPlavix 13:37:01 Patient diabetic? Yes. 13:37:19 If diabetic: On Metformin? No 13:37:21 Previous problem with sedation/anesthesia? No ? 13:37:25 Snore? Yes 13:37:26 Sleep apnea? No 13:37:27 Deviated septum? No 13:37:28 Opens mouth fully? Yes 13:37:28 Sticks out tongue? Yes 13:37:30 Airway obstruction? No ? 13:37:32 Dentures? No ? 13:37:35 Pre procedure: right dorsailis pedis pulse 1+ Palpable, but thready & weak; easily obliterated 13:37:50 PT HAS A RESERVE LEFT ARM. 13:37:58 IV patent on arrival in right forearm with 0.9% NaCl at [facility]. 13:38:01 Lab results completed and on chart. 13:38:29 Lab Result : Creatinine 7.2 mg/dl 13:38:29 Lab Result : BUN 80 mg/dl 13:38:29 Lab Result : Hemoglobin 9.2 g/dl 13:38:29 Lab Result : Platelets 151 10^3/l 13:38:35 Right groin area was prepped with chlora-prep and draped in sterile fashion 13:38:35 Alarms reviewed by R. N. 13:38:36 Sharps counted by scrub and verified by R.N. 13:40:14 --------ALL STOP TIME OUT------ 13:40:15 Final Timeout: patient, procedure, and site verified with staff and physician. All members of the team are in agreement. 13:40:17 Right groin site verified by team. 13:40:28 Patient Weight : 202.83 lbs 13:40:55 Maximum allowable Isovue 300 dose 12ml. Physician notified. (300ml for normal creatinines. For patients with creatinine of 1.7 or higher multiply weight(kg) x 5 divided by creatinine.) 13:40:59 Fire Safety Assessment: A--An alcohol-based skin anteseptic being used preoperatively., C--Open oxygen or nitrous oxide is being used., D--An ESU, laser, or fiber-optic light is being used. 13:41:02 Physical assessment completed. ASA score P 2 - A patient with mild systemic disease as per Jhonatan Saucedo MD. 13:41:05 Sedation plan: IV Moderate Sedation Medication:Versed, Fentanyl 13:43:20 Versed 1 mg I.V. was administered by Timothy Mccain RN; for sedation; 13:43:26 Use device set Femoral Dx 13:43:28 Tegaderm 4 x 4 (1626W) opened to sterile field. 13:43:29 ACIST Manifold (52062) opened to sterile field. 13:43:30 ACIST Hand Control (06948) opened to sterile field. 13:43:32 ACIST Syringe (98109) opened to sterile field. 13:43:32 Bag Decanter () opened to sterile field. 13:43:32 Medline Cath Pack ([id number]) opened to sterile field. 13:43:33 DIAGNOSTIC WIRE .035 260cm J wire (069714) opened to sterile field. 13:43:34 DIAGNOSTIC Multipack 5Fr catheter set (UO9635) opened to sterile field. 13:43:35 SHEATH 5FR Montverde (IGI455) opened to sterile field. 13:43:38 Fentanyl 50 mcg I.V. was administered by Timothy Mccain RN; for sedation; 13:43:45 Procedure started. 13:43:48 Local anesthetic to right femoral artery with Lidocaine 2% by Jhonatan Saucedo MD.INITIAL ACCESS ONLY 13:46:06 A 5 Fr sheath was inserted into the Right Femoral vein 13:47:59 SHEATH 5FR Montverde (IKR871) opened to sterile field. 13:49:41 A 5 Fr sheath was inserted into the Right Femoral artery 13:49:49 A MULTIPACK JL 4.0 5Fr catheter was advanced over the wire and used for Procedure. 13:50:06 Zero performed for pressure channel P1 13:50:44 LCA angiography performed. 13:51:59 Catheter removed. 13:52:05 A MULTIPACK 3DRC 5Fr catheter was advanced over the wire and used for Procedure. 13:52:43 RCA angiography performed. 13:53:32 SCHULTZ to LAD angiography performed. 13:55:[address] RUSHING PCI 13:55:43 SHEATH 6FR Montverde (MSI651) opened to sterile field. 13:55:47 WHISPER 300cm guide wire ([id number]) opened to sterile field. 13:55:48 INFLATOR Merit BasixCompak (FP3483) opened to sterile field. 13:56:07 SVG closed. 13:57:18 Catheter removed. 13:57:24 A MULTIPACK Pigtail 5 Fr catheter was advanced over the wire and used for Procedure. 13:57:59 LV angiography performed. 13:58:01 LV gram done using MENDEZ 13:58:05 EF : 20 % 13:58:07 LV hemodynamics recorded. 13:58:10 Injector settings: Ml/sec: 10, Volume: 20, 13:58:13 Catheter removed. 13:59:07 Sheath upsized to a 6 Fr Short. 13:59:20 GUIDE 6FR EBU 3.5 catheter ([id number]) opened to sterile field. 13:59:40 6 Fr EBU 3.5 guide catheter was inserted over the wire 14:00:56 Whisper wire advanced. 14:03:16 Heparin Bolus 5000 units I.V. was administered by Timothy Mccain RN; for anticoagulation; 14:03:38 Wire advanced across lesion. 14:04:36 Inflate balloon Inflation number: 1 A EMERGE OTW 3.0 x 15 balloon ([id number]) was prepped and advanced across the Prox CX, then inflated to 10 JAYLEN for 0:10 (min:sec). 14:05:12 Multiple inflations at 12 Atms. 14:06:34 EXOSEAL 6Fr (EX600) opened to sterile field. 14:06:39 Balloon removed over the wire. 14:06:40 Wire removed. 14:06:41 Guide catheter removed. 14:06:55 Sheath removed intact; hemostasis achieved with Exoseal to the Right Femoral artery. 14:06:58 EXOSEAL 5Fr (EX500) opened to sterile field. 14:07:00 Sheath removed intact; hemostasis achieved with Exoseal to the Right Femoral vein. 14:07:08 Procedure ended.(Physican Out) 14:09:26 Fluoroscopy time 04.60 minutes. 14:09:29 Fluoroscopy dose: 574 mGy 14:09:29 Flurop Dose total: 574 14:09:35 Contrast amount:Isovue 300 86ml. 14:09:44 Sharps counted by scrub and verified by R.N. 14:09:46 Insertion/operative site no bleeding no hematoma. 14:09:48 Post-op/insertion site Right Femoral artery dressed using a 4 x 4 and Tegaderm. 14:09:49 Post Procedure Pulses reassessed and unchanged 14:09:52 Post-procedure physical assessment completed. ASA score P 2 - A patient with mild systemic disease as per Jhonatan Saucedo MD. 14:09:54 Post procedure rhythm: sinus rhythm 14:10:04 Estimated blood loss: 10 ml 14:10:06 Post procedure instruction explained to patient.Patient verbalizes understanding. 14:10:06 Patient needs reinforcement of post procedure teaching. 14:10:20 Procedure type changed to Cath procedure, Diagnostic procedure, LHC, LHC w/Coronaries w/Grafts, PCI procedure, PTCA, PTCA Initial 14:10:20 Procedure and supply charges have been captured, reviewed, submitted and are correct. 14:10:23 Procedure Complication : No complications 14:10:57 Vital chart was stopped 14:10:57 See physician's report for complete and final results. 14:11:01 Report given to [facility]. 14:11:04 Patient transfered to [facility] with Bed. 14:11:06 Procedure ended. 14:11:06 Full Disclosure recording stopped 14:13:19 End room use (Document Last) Intervention Summary Intervention Notes Time ActionType Lesion and Equipment Action# Pressure Duration Attributes Used 14:04:36 Inflate Prox CX EMERGE OTW 1 10 00:10 balloon 3.0 x 15 balloon ([id number]) Device Usage Item Name Manufacture Quantity Catalog Number Hospital Part Current Min imal Lot# / Charge Number Stock Stock Serial# Code Tegaderm 4 x 3M 1 1626W [id number] 760825 723133 5 4 (1626W) ACIST Acist 1 19459 321744 429847 141753 5 Manifold Medical (79116) Systems Inc ACIST Hand Acist 1 07637 978900 179803 508994 5 Control Medical (76373) Systems Inc ACIST Acist 1 47561 811763 036552 908994 20 Syringe Medical (68359) Systems Inc Bag Decanter Microtek 1 2001S 446782 23378 964750 5 (2001S) Medical Inc. Medline Cath Medline 1 [id number] 172607 49919 239820 5 Pack ([id number]) DIAGNOSTIC St Ajit 1 852878 190619 151742 799840 30 WIRE .035 260cm J wire (947256) DIAGNOSTIC Cardinal 1 EE3798 131247 96790 457848 30 Multipack Health 5Fr catheter set (EO1670) SHEATH 5FR Terumo 2 OOM694 901752 342020 950350 5 Montverde (THN990) MULTIPACK JL Cardinal 1 921423 5 4.0 5Fr Health catheter MULTIPACK Cardinal 1 120392 5 3DRC 5Fr Health catheter SHEATH 6FR Terumo 1 VFQ647 605507 850997 680455 40 Montverde (IWV051) WHISPER [place] 1 [id number] 516223 335413 867241 5 300cm guide Vascular wire ([id number]) INFLATOR [facility] 1 AG1936 728803 504923 833639 15 [facility] Medical BasixCompak (QD0229) MULTIPACK Cardinal 1 290541 5 Pigtail 5 Fr Health catheter GUIDE 6FR Medtronic 1 [id number] 378790 77337 364316 3 EBU 3.5 catheter ([id number]) EMERGE OTW [place] 1 [id number] 309430 168396 293394 5 [id number] 3.0 x 15 Scientific balloon ([id number]) EXOSEAL 6Fr Cardinal 1 EX600 762350 954322 891009 10 (EX600) Health EXOSEAL 5Fr Cardinal 1 EX500 767914 872456 646651 10 (EX500) Health Signature Audit [place] Stage Time Signature Unsigned Intra-Procedure 06/27/2018 Cooper De Dios 2:13:50 PM RT(R) Signatures Monitor : Cooper De Dios RT Signature : Date : Time : [id number] [place] [address]
[~2018-06-26 15:41] MED LIST: BUMEX2 MG PO; CATAPRES0.1 MG PO; CHRONULAC30 ML PO; FLOMAX0.4 MG PO; HUMULIN N100 U/ML SC; IMODIUM2 MG PO; LEVOXYL50 MCG PO; LIPITOR10 MG PO; NASONEX NASAL S17 GM NS; NEURONTIN 300300 MG PO; NITROSTAT0.4 MG SL; PLAVIX75 MG PO; PROMACTA25 MG PO; PROTONIX40 MG PO; RENVELA800 MG PO; TRAZODONE HCL150 MG PO; TYLENOL W/CODEI1 TAB PO; VERELAN180 MG PO
--- NOTE | 2018-06-26 16:58 | NUR ---
SPOKE WITH ERIBERTO GAVIRIA, PT'S DAUGHTER AT THIS TIME. RECEIVED CONSENT FROM PATIENT TO SPEAK TO PT'S DAUGHTER. PT IN NO ACUTE DISTRESS AT THIS TIME, WILL CONTINUE TO MONITOR FOR CHANGES.
[2018-06-26 17:03] LABS: CKMB 3.4 U/L (0.0-3.6); CREATINE KINASE 106 UL (21-232); MAGNESIUM - SERUM 1.9 mg/dL (1.8-2.4)
[2018-06-26 17:11] LABS: TROPONIN-I 3.539 ng/mL (0.000-0.060)
[2018-06-26 18:34] LABS: BASOPHILS 0.4 % (0-2); EOSINOPHILS 1.6 % (0-7); HEMATOCRIT 30.7 % (42.0-54.0); IMMATURE GRANULOCYTES 0.2 % (0-5); LYMPHOCYTES 13.5 % (15-50); MCH 25.1 pg (26.0-34.0); MCHC 32.6 g/dL (31.0-37.0); MCV 77.1 fL (80.0-100.0); MEAN PLATELET VOLUME 11.4 fL (7.4-10.4); MONOCYTES 6.5 % (2-11); NEUTROPHILS 77.8 % (40-80); PLATELET COUNT 202 10x3/uL (130-400); RBC 3.98 10x6/uL (4.20-6.10); RDW 17.4 % (11.5-14.5); WBC 5.7 10x3/uL (4.8-10.8)
[2018-06-26 18:45] LABS: ANION GAP 18.6 mmol/L (8-16); CALCIUM 9.3 mg/dL (8.5-10.1); CARBON DIOXIDE 25.9 mmol/L (21.0-32.0); POTASSIUM - SERUM 4.5 mmol/L (3.5-5.1)
--- NOTE | 2018-06-26 18:59 | NUR ---
ATTEMPTED TO CALL REPORT ON PATIENT AT THIS TIME, WAS INFORMED NURSE WAS IN REPORT AND WOULD CALL BACK AT THIS TIME.
[2018-06-26 19:06] LABS: INR 1.12 (0.85-1.17); PROTIME 13.9 SECONDS (11.6-15.0)
--- NOTE | 2018-06-26 19:38 | MORECARE ---
CASE MANAGEMENT DISCHARGE SUMMARY PATIENT: SYDNIE POPE UNIT: [id number] ADM DATE: 06/26/18 AGE: 72 : 43 SEX: M ROOM/BED: D.2116 AUTHOR: ESTHER WALLACE PHYSICIAN: REFERRING PHYSICIAN: REGGIE JACKSON MD DATE OF SERVICE: 06/26/18 Discharge Plan Patient Name: SYDNIE POPE Facility: [facility]:[place] : 1945 Planned Disposition: Home Health Service Anticipated Discharge Date: 06/30/18 Discharge Date: Expected LOS: 4 Initial Reviewer: [id number] Initial Review Date: 06/26/2018 Generated: 06/26/18 8:37 pm Patient Name: SYDNIE POPE Page 39112 at 1938 All edits/amendments must be made on the electronic document DICTATION DATE: 06/26/181936 PRESSER AND BLOCKER KNITTED GOODS: JANICE 06/26/181936 RPT#: [id number] DC DATE: STATUS: ADM IN [facility] [address] [place] [address] END OF REPORT
--- NOTE | 2018-06-26 19:44 | MORECARE ---
CASE MANAGEMENT DISCHARGE SUMMARY PATIENT: SYDNIE GARLAND UNIT: [id number] ADM DATE: 06/26/18 AGE: 72 : 43 SEX: M ROOM/BED: D.7406 AUTHOR: ESTHER WALLACE PHYSICIAN: REFERRING PHYSICIAN: REGGIE JACKSON MD DATE OF SERVICE: 06/26/18 Discharge Plan Patient Name: SYDNIE GARLAND Facility: [facility]:[place] : 1945 Planned Disposition: Home Health Service Anticipated Discharge Date: 06/30/18 Discharge Date: Expected LOS: 4 Initial Reviewer: [email or web address] Initial Review Date: 06/26/2018 Generated: 06/26/18 8:44 pm Comments DCP- Discharge Planning Updated by [email or web address]: Nohemy Lipscomb on 06/26/18 6:[address] Patient Name: SYDNIE GARLAND Admission Status: ER Accout number: [id number] Admission Date: 06-26-2018 : 1945 Admission Diagnosis: Attending: REGGIE JACKSON Current LOS: 1 Anticipated DC Date: 06-30-2018 Planned Disposition: Home Health Service Primary Insurance: MEDICARE A & B Discharge Planning Comments: CM met with patient to complete initial dc planning assessment. CM educated patient on the CM role and verbal consent given by patient to complete assessment. Patient lives at home with his and reports he is independent in his care other than he is not able to drive. . Patient currently has [facility] and wishes to resume at discharge. MALATHI form signed by patient's for resumption of Home Health. Signed form placed in chart and signed form given to patient. Patient does HD every T-TH-Sat at [place]. His transports him to and from. He is not able to drive. At discharge patient plans to return home and feels this is a safe discharge. Patient denied further known discharge needs at this time. CM will continue to follow and will assist as needed with dc plans/needs. Design Printing Machine Setter: Nohemy Lipscomb RN, [facility] DCPIA - Discharge Planning Initial Assessment Updated by [email or web address]: Nohemy Lipscomb on 06/26/18 7:38 pm * Is the patient Alert and Oriented? Yes * How many steps to enter\exit or inside your home? None * PCP Dr. Ayala * Preadmission Environment Home with Family * ADLs Partial Dependent * Equipment Cane Rolling Walker * Other Equipment Require assistance with transportation. Patient not able to drive. * List name and contact numbers for known caregivers / representatives who currently or will assist patient after discharge: Reba Garland - spouse - [phone] * Verbal permission to speak to the caregivers and representatives has been obtained from the patient. Yes * Community resources currently utilized Home Health * Please name any agencies selected above. [facility] HD T-TH-SAT - transports him to and from HD. * Additional services required to return to the preadmission environment? No * Can the patient safely return to the preadmission environment? Yes * Has this patient been hospitalized within the prior 30 days at any hospital? No Last DP export: 06/26/18 6:38 p Patient Name: SYDNIE GARLAND Page 29965 at 1946 All edits/amendments must be made on the electronic document DICTATION DATE: 06/26/181943 STRAWHAT BLOCKING OPERATOR: JANICE 06/26/181943 RPT#: [id number] DC DATE: STATUS: ADM IN [facility] [address] [place] [address] END OF REPORT
--- NOTE | 2018-06-26 20:10 | NUR ---
CALLED IVAN BARON FOR CLARIFICATIONS ON MEDICATION THAT ER HAD NOT GIVEN. NEW ORDERS GIVEN. D/C HEPARIN INJECTION. OK START HEPARIN DRIP. STAT CBC, CMP, CARDIAC ENZYMES IF NOT ORDERED IN ER. CARDIAC ENZYMES, AM LABS.
--- NOTE | 2018-06-26 20:30 | NUR ---
PATIENT ARRIVED FROM ER. PATIENT IS ALERT AND ORIENTED. RESPIRATIONS ARE EVEN AND UNLABORED. NO S/S OF DISTRESS. NO C/O PAIN. PATIENT HAD MEDICATIONS THAT WERE ORDER AT 1845 INCLUDING A HEPARIN DRIP THAT HAD NOT BEEN STARTED. INFORMED MY NURSE PROCESS DESCRIPTION WRITER. WILL CALL PRODUCTION OPERATIONS INSPECTOR TO CLARIFY ORDER. CALL [facility] WITHIN REACH. WILL CPOC.
[2018-06-26 22:10] LABS: CKMB 3.1 U/L (0.0-3.6); CREATINE KINASE 86 UL (21-232)
[2018-06-26 22:11] LABS: TROPONIN-I 3.256 ng/mL (0.000-0.060)
[2018-06-27] VITALS: BP 143/59
[2018-06-27 00:41] LABS: HEMATOCRIT 28.5 % (42.0-54.0); HEMOGLOBIN 9.4 g/dL (13.5-17.5); MCH 25.3 pg (26.0-34.0); MCV 76.6 fL (80.0-100.0); MEAN PLATELET VOLUME 11.3 fL (7.4-10.4); RBC 3.72 10x6/uL (4.20-6.10); RDW 17.4 % (11.5-14.5); WBC 4.8 10x3/uL (4.8-10.8)
[2018-06-27 02:11] VITALS: BP 103/64; BMI 24.7
--- NOTE | 2018-06-27 03:53 | NUR ---
CALLED LAB SPOKE WITH ROGELIO. PATIENT HAD A 0315 APTT PER THE HEPARIN DRIP PROTOCOL. WHICH HAD NOT RESULTED. SPECIMEN HAS NOT BEEN OBTAINED OF YET.
--- NOTE | 2018-06-27 03:58 | NUR ---
PATIENT RESTING COMFORTABLY IN BED. RESPIRATIONS ARE EVEN AND UNLABORED. NO S/S OF DISTRESS. AT BEDSIDE. CALL LIGHT WITHIN REACH. WILL CPOC.
[2018-06-27 04:00] VITALS: BP 158/64
[2018-06-27 04:04] LABS: BASOPHILS 0.2 % (0-2); EOSINOPHILS 2.4 % (0-7); HEMATOCRIT 27.9 % (42.0-54.0); HEMOGLOBIN 9.2 g/dL (13.5-17.5); LYMPHOCYTES 16.7 % (15-50); MCH 25.2 pg (26.0-34.0); MCV 76.4 fL (80.0-100.0); MEAN PLATELET VOLUME 10.6 fL (7.4-10.4); MONOCYTES 5.7 % (2-11); PLATELET COUNT 151 10x3/uL (130-400); RBC 3.65 10x6/uL (4.20-6.10); RDW 17.3 % (11.5-14.5); WBC 5.1 10x3/uL (4.8-10.8)
--- NOTE | 2018-06-27 04:26 | NUR ---
WHEN ROUNDING ON PATIENT, HE WAS CONFUSED. HE WAS ASKING WHY HE WAS HERE. EXPLAINED TO PATIENT WHY HE WAS HERE. PATIENT WANTING TO GO HOME.
[2018-06-27 04:33] LABS: CALC OSMOLALITY 302 mosm/kg (275-300); CALCIUM 9.2 mg/dL (8.5-10.1); CARBON DIOXIDE 25.7 mmol/L (21.0-32.0); CHLORIDE - SERUM 100 mmol/L (98-107); CKMB 2.9 U/L (0.0-3.6); CREATINE KINASE 88 UL (21-232); CREATININE - SERUM 7.2 mg/dL (0.6-1.3); GLUCOSE 154 mg/dL (74-106); POTASSIUM - SERUM 5.1 mmol/L (3.5-5.1); SODIUM 138 mmol/L (136-145); TROPONIN-I 2.669 ng/mL (0.000-0.060); UREA NITROGEN 80 mg/dL (7-18); eGFR NON AFRICAN AMERICAN 8 mL/min (90-120)
--- NOTE | 2018-06-27 09:05 | NUR ---
CONSENTS SIGNED FOR [facility]. WILL CONT. PLAN OF CARE.
[2018-06-27 12:05] LABS: CKMB 2.4 U/L (0.0-3.6); CREATINE KINASE 75 UL (21-232)
[2018-06-27 12:06] LABS: TROPONIN-I 3.357 ng/mL (0.000-0.060)
--- NOTE | 2018-06-27 12:40 | NUR ---
WOKE UP CONFUSED AND LETHARGIC. BS 136. B/P 151/67. MACHINE STAKERShani CUENCA notified. We believe it was from the iv benadryl. Will monitor.
[2018-06-27 13:10] VITALS: Ht 193 cm; Wt 92.1 kg
--- NOTE | 2018-06-27 13:22 | NUR ---
PRE-OPS GIVEN. TO CORPORATE RISK ANALYST BY BED.
--- NOTE | 2018-06-27 14:37 | NUR ---
BACK FROM HELIX COIL WINDER. VS WNL. RIGHT GROIN STABLE WITHOUT BLEEDING OR HEMATOMA BOTED. WILL MONITOR.
--- NOTE | 2018-06-27 17:10 | NUR ---
BED REST UP GROIN STABLE.
[2018-06-27 17:26] VITALS: BP 126/53
[2018-06-27 17:36] VITALS: BP 118/86
--- NOTE | 2018-06-27 19:43 | NUR ---
RECIEVED UP IN BED WITH EYES OPEN AND TV ON.ALERT AND CONFUSED. TELEMETRY IN PLACE. DSG TO RIGHT GROIN CDI. IV TO RIGHT FA SL.. DENIES ANY NEEDS AT THIS TIME.
[2018-06-27 21:17] VITALS: BP 142/69
[2018-06-28 01:04] VITALS: BP 122/49
--- NOTE | 2018-06-28 01:14 | NUR ---
UP AMBULATING IN HALLWAY. ALERT AND ORIENTED TO PERSON ONLY. ABLE TO REDIRECT BACK TO BED. SPOUSE AT BEDSIDE ASLEEP.
[2018-06-28 03:55] VITALS: BP 134/67
[2018-06-28 04:59] LABS: BASOPHILS 0.5 % (0-2); EOSINOPHILS 2.1 % (0-7); HEMATOCRIT 30.2 % (42.0-54.0); HEMOGLOBIN 9.8 g/dL (13.5-17.5); IMMATURE GRANULOCYTES 0.2 % (0-5); LYMPHOCYTES 9.1 % (15-50); MCH 25.1 pg (26.0-34.0); MCHC 32.5 g/dL (31.0-37.0); MCV 77.2 fL (80.0-100.0); MONOCYTES 8.2 % (2-11); NEUTROPHILS 79.9 % (40-80); RBC 3.91 10x6/uL (4.20-6.10); RDW 17.7 % (11.5-14.5); WBC 5.8 10x3/uL (4.8-10.8)
[2018-06-28 05:06] LABS: PLATELET COUNT 210 10x3/uL (130-400)
[2018-06-28 05:21] LABS: CALCIUM 9.3 mg/dL (8.5-10.1); CARBON DIOXIDE 25.2 mmol/L (21.0-32.0); CREATININE - SERUM 8.3 mg/dL (0.6-1.3); POTASSIUM - SERUM 5.2 mmol/L (3.5-5.1)
--- NOTE | 2018-06-28 07:30 | NUR ---
RESTING QUIETLY EYES CLOSED RESP UNLABORED SKIN W/D COLOR WNL NAD NOTED AT BEDSIDE
[2018-06-28 07:56] VITALS: BP 113/57
[2018-06-28] MEDS ORDERED: NEURONTIN 300300 MG PO (09:23)
[2018-06-28] MEDS ORDERED: TRAZODONE HCL150 MG PO (09:23)
[2018-06-28] MEDS ORDERED: NAMENDA5 MG PO (09:25)
--- NOTE | 2018-06-28 12:41 | NUR ---
FSBS 129
[2018-06-28 13:35] VITALS: BP 146/56
--- NOTE | 2018-06-28 14:28 | NUR ---
PT TO DIALYSIS PER W/C
--- NOTE | 2018-06-28 20:08 | NUR ---
RECIEVED LAYING IN BED WITH EYES CLOSED. EASILY AROUSES WITH VERBAL STIMULI. ORIENTED X2. DSG TO RIGHT GROIN CDI. LEFT ARM RESERVED D/T AVF. REPORTED RECIEVED DIALYSIS TODAY. STATES " I DON'T FELL ANY BETTER". AVF HAS GOOD BRUIIT AND TRILL. DENIES ANY NEEDS EXCEPT SLEEP.
[2018-06-28 20:33] VITALS: BP 112/46
[2018-06-28 23:55] VITALS: BP 127/39
[2018-06-29 03:55] VITALS: BP 112/52
[2018-06-29 05:43] LABS: BASOPHILS 0.4 % (0-2); HEMATOCRIT 28.3 % (42.0-54.0); HEMOGLOBIN 9.5 g/dL (13.5-17.5); IMMATURE GRANULOCYTES 0.2 % (0-5); MCH 25.5 pg (26.0-34.0); MCHC 33.6 g/dL (31.0-37.0); MCV 75.9 fL (80.0-100.0); MEAN PLATELET VOLUME 10.3 fL (7.4-10.4); NEUTROPHILS 77.4 % (40-80); PLATELET COUNT 204 10x3/uL (130-400); RBC 3.73 10x6/uL (4.20-6.10); RDW 17.4 % (11.5-14.5)
[2018-06-29 06:08] LABS: ANION GAP 12.3 mmol/L (8-16); CALCIUM 9.2 mg/dL (8.5-10.1); CARBON DIOXIDE 29.4 mmol/L (21.0-32.0); CREATININE - SERUM 6.5 mg/dL (0.6-1.3); POTASSIUM - SERUM 4.7 mmol/L (3.5-5.1)
[2018-06-29 08:03] VITALS: BP 113/45
[2018-06-29] MEDS ORDERED: LOPRESSOR25 MG PO (10:09)
[2018-06-29] MEDS ORDERED: COZAAR25 MG PO (10:09)
--- NOTE | 2018-06-29 10:39 | CN ---
PATIENT NAME:SYDNIE POPE MEDICAL RECORD: [id number] : 41 LOCATION:[facility] D.2116 ADMIT DATE: 06/26/18 ACCOUNT: [id number] CONSULTING PHYSICIAN: SE GARCIA MD REFERRING PHYSICIAN: REGGIE JACKSON MD DATE OF CONSULTATION: 06/27/2018 HISTORY OF PRESENT ILLNESS: A 72-year-old gentleman with a history of chronic renal insufficiency, history of coronary artery disease, status post intervention in January this year. He has had recurrent pain by his 's report about the past 2 weeks, typically relieved with one nitroglycerin. He had to have 2 nitroglycerins yesterday, found to have elevated troponin. Difficult to say full diagnosis in the face of renal insufficiency; however, given his symptomatology, we will plan for angiography, intervention based on above. PAST MEDICAL HISTORY: Include: 1. History of diabetes mellitus. 2. Hypertension. 3. Hyperlipidemia. 4. Chronic renal insufficiency, on dialysis. 5. Intermittent hyperkalemia. 6. Anemia, erythropoietin dependent. ALLERGIES: INCLUDE LORAZEPAM, HALDOL, MORPHINE, HYDROMORPHONE. SOCIAL HISTORY: Lives in [place], does need assistance with ADLs. Good family support. REVIEW OF SYSTEMS: The patient reports easy bruising but reports no swollen glands. The patient reports no fever, no night sweats, no significant weight gain, no significant weight loss. No significant exercise tolerance. The patient reports no dry eyes, no irritation, no vision change. Patient reports no difficulty hearing and no ear pain. Patient reports no frequent nose bleeds or nose and sinus problems. Patient reports on arm pain on exertion. No shortness of breath while lying down. No history of heart murmur. Patient reports no cough, no wheezing or coughing up blood. Patient reports no abdominal pain, no vomiting. Normal appetite. No diarrhea and not vomiting blood. No nausea and no constipation. Patient reports no incontinence. No difficulty urinating. No hematuria. No increased frequency. Patient reports no muscle aches. No weakness, no arthralgias, no back pain. No swelling of the extremities. Patient reports no abnormal mole, no jaundice, no rashes. Reports no loss of consciousness. No weakness and no numbness. No seizures, dizziness, or headaches. The patient reports no depression, no sleep disturbance, feeling safe in a relationship and no alcohol abuse. Patient reports on fatigue. Reports no runny nose or sinus pressure. No itching, no hives, and no frequent sneezing. MEDICATIONS: Include Flomax 0.4 every day, Plavix 75 every day, verapamil 180 q.h.s., Renvela 800 mg t.i.d. with meals, lactulose 50 mg b.i.d., Synthroid 50 mcg every day, insulin per scale. PHYSICAL EXAMINATION: GENERAL: This is an elderly gentleman in no acute distress, appears stated age. VITAL SIGNS: Blood pressure 154/64, pulse 72 and regular. CONSULT REPORT [id number] SYDNIE POPE HEENT: Normocephalic, atraumatic. NECK: No bruits noted. HEART: Regular. A II/ systolic ejection murmur. LUNGS: Good air excursion. ABDOMEN: Soft, nontender. EXTREMITIES: Pulses are decreased, 1+ with no edema. IMPRESSION: NSTEMI, acute coronary syndrome, questionable restenosis versus [place] disease pathology. PLAN: For angiography, intervention based on above. TRANSINT:[id number] Voice Confirmation ID: [id number] DOCUMENT ID: [id number] ES GARCIA MD at 1039 CC: [id number] DICTATION DATE: 06/27/1839 FILENET ARCHITECT: 06/27/18 0849 [place] [address]
--- NOTE | 2018-06-29 10:39 | OP ---
PATIENT NAME: SYDNIE POPE MEDICAL RECORD: [id number] :41 LOCATION:D.M2 D.6 ADMISSION DATE:06/26/18 SURGEON: ES GARCIA MD DATE OF OPERATION: 06/27/2018 PROCEDURE: Left heart catheterization, selective coronary angiography, right femoral artery approach. CATHETERS: A 5-Bahamian sheath, 5/4 left and right Keke, 5/4 pig. The procedure was well tolerated. The patient returned to hallman, sheath removed. ExoSeal device placed. FINDINGS: Left ventriculography in 30-degree MENDEZ view shows global hypokinesis, reduced EF 25% to 30%. CORONARY ANATOMY: LEFT MAIN: Left main is free of disease. LAD: Fills for a short period of time, this is seen filling competitive flow from the SCHULTZ. CIRCUMFLEX: There is a high OM/ramus branch that is totally occluded and fills late distally via left to left collaterals. A previously placed stent in the circumflex shows severe diffuse in-stent restenosis. . Right coronary artery is totally occluded, fills via left to right collaterals in the LAD shows about 50% stenosis, does fill the LAD in the right nicely via collaterals. PLAN: Intervention of circumflex. DESCRIPTION OF PROCEDURE: A 5-Bahamian sheath was exchanged for a 6-Bahamian sheath. EBU 3.5 guide catheter provided good catheter support followed by a 300 cm Whisper wire was placed across basically subtotalled restenotic circumflex distal portion of the vessel. Balloon used was 3.0 x 15 mm [place] up and down the vessel, 12 atmospheres. Final injection shows excellent resolution of a subtotal in-stent restenosis. No significant residual. SOFÍA flow improved from 1-3. We will stop calcium channel joe. Add ARB for a cardiomyopathic support. Continue Plavix. TRANSINT:[id number] Voice Confirmation ID: [id number] DOCUMENT ID: [id number] ES GARCIA MD at 1039 CC: [id number] DICTATION DATE: 06/27/18 1420 [place] ORD[facility]: 06/27/180 ADM IN [place] [id number] [place] [address]
--- NOTE | 2018-06-29 13:00 | NUR ---
REVIEWED DISCHARGE INSTRUCTIONS WITH PT AND STATE UNDERSTANDING COPY GIVEN PT DISCHARGED HOME IN STABLE CONDITION WITH ALL PERSONAL BELONGINGS LEFT UNIT VIA W/C
--- NOTE | 2018-06-29 13:19 | MORECARE ---
CASE MANAGEMENT DISCHARGE SUMMARY PATIENT: SYDNIE GARLAND UNIT: [id number] ADM DATE: 06/26/18 AGE: 72 : 41 SEX: M ROOM/BED: D.3256 AUTHOR: MADISON,DOC PHYSICIAN: REFERRING PHYSICIAN: REGGIE JACKSON MD DATE OF SERVICE: 06/29/18 Discharge Plan Patient Name: SYDNIE GARLAND Facility: [facility]:[place] : 1945 Planned Disposition: Home Health Service Anticipated Discharge Date: 06/30/18 Discharge Date: Expected LOS: 4 Initial Reviewer: [email or web address] Initial Review Date: 06/26/2018 Generated: 06/29/18 2:19 pm Comments DCP- Discharge Planning Updated by [email or web address]: Elodia Fall on 06/29/18 12:[address] TC TO [facility] AT [phone]. SPOKE W/ SERVICE. RECEIVED CALL BACK FROM MAIRA, THE TIRE CURER NURSE. DISCUSSED CASE. HOME HEALTH WILL CONTACT FAMILY REGARDING VISIT DATE FAXED REFERRAL UPDATE TO [phone]. DCP- Discharge Planning Updated by [email or web address]: Nohemy Lipscomb on 06/26/18 6:[address] Patient Name: SYDNIE GARLAND Admission Status: ER Accout number: [id number] Admission Date: 06-26-2018 : 1945 Admission Diagnosis: Attending: REGGIE JACKSON Current LOS: 1 Anticipated DC Date: 06-30-2018 Planned Disposition: Home Health Service Primary Insurance: MEDICARE A & B Discharge Planning Comments: CM met with patient to complete initial dc planning assessment. CM educated patient on the CM role and verbal consent given by patient to complete assessment. Patient lives at home with his and reports he is independent in his care other than he is not able to drive. . Patient currently has [facility] and wishes to resume at discharge. MALATHI form signed by patient's for resumption of Home Health. Signed form placed in chart and signed form given to patient. Patient does HD every T-TH-Sat at [place]. His transports him to and from. He is not able to drive. At discharge patient plans to return home and feels this is a safe discharge. Patient denied further known discharge needs at this time. CM will continue to follow and will assist as needed with dc plans/needs. Metalizing Supervisor: Nohemy Lipscomb RN, [facility] DCPIA - Discharge Planning Initial Assessment Updated by [email or web address]: Nohemy Lipscomb on 06/26/18 7:38 pm * Is the patient Alert and Oriented? Yes * How many steps to enter\exit or inside your home? None * PCP Dr. Ayala * Preadmission Environment Home with Family * ADLs Partial Dependent * Equipment Cane Rolling Walker * Other Equipment Require assistance with transportation. Patient not able to drive. * List name and contact numbers for known caregivers / representatives who currently or will assist patient after discharge: Reba Garland - spouse - [phone] * Verbal permission to speak to the caregivers and representatives has been obtained from the patient. Yes * Community resources currently utilized Home Health * Please name any agencies selected above. [facility] HD T-TH-SAT - transports him to and from HD. * Additional services required to return to the preadmission environment? No * Can the patient safely return to the preadmission environment? Yes * Has this patient been hospitalized within the prior 30 days at any hospital? No Last DP export: 06/26/18 6:44 p Patient Name: SYDNIE GARLAND Page [id number] at 1319 All edits/amendments must be made on the electronic document DICTATION DATE: 06/29/181317 WEBSPHERE COMMERCE DEVELOPER: JANICE 06/29/181317 RPT#: [id number] DC DATE: STATUS: ADM IN [facility] [address] [place] [address] END OF REPORT
[2018-06-29 13:25] VITALS: BP 102/47
--- NOTE | 2018-06-30 07:47 | MORECARE ---
CASE MANAGEMENT DISCHARGE SUMMARY PATIENT: SYDNIE GARLAND UNIT: [id number] ADM DATE: 06/26/18 AGE: 72 : 43 SEX: M ROOM/BED: D.9806 AUTHOR: MADISON,DOC PHYSICIAN: REFERRING PHYSICIAN: REGGIE JACKSON MD DATE OF SERVICE: 06/30/18 Discharge Plan Patient Name: SYDNIE GARLAND Facility: [facility]:[place] : 1945 Planned Disposition: Home Health Service Anticipated Discharge Date: 06/29/18 Discharge Date: 06/29/2018 Expected LOS: 3 Initial Reviewer: [email or web address] Initial Review Date: 06/26/2018 Generated: 06/30/18 8:46 am Comments DCP- Discharge Planning Updated by [email or web address]: Elodia Fall on 06/29/18 12:[address] TC TO [facility] AT [phone]. SPOKE W/ SERVICE. RECEIVED CALL BACK FROM MAIRA THE TOWN CLERK NURSE. DISCUSSED CASE. HOME HEALTH WILL CONTACT FAMILY REGARDING VISIT DATE FAXED REFERRAL UPDATE TO [phone]. DCP- Discharge Planning Updated by [email or web address]: Nohemy Lipscomb on 06/26/18 6:[address] Patient Name: SYDNIE GARLAND Admission Status: ER Accout number: [id number] Admission Date: 06-26-2018 : 1945 Admission Diagnosis: Attending: REGGIE JACKSON Current LOS: 1 Anticipated DC Date: 06-30-2018 Planned Disposition: Home Health Service Primary Insurance: MEDICARE A & B Discharge Planning Comments: CM met with patient to complete initial dc planning assessment. CM educated patient on the CM role and verbal consent given by patient to complete assessment. Patient lives at home with his and reports he is independent in his care other than he is not able to drive. . Patient currently has [facility] and wishes to resume at discharge. MALATHI form signed by patient's for resumption of Home Health. Signed form placed in chart and signed form given to patient. Patient does HD every T-TH-Sat at [place]. His transports him to and from. He is not able to drive. At discharge patient plans to return home and feels this is a safe discharge. Patient denied further known discharge needs at this time. CM will continue to follow and will assist as needed with dc plans/needs. Photography Intern: Nohemy Lipscomb RN, [facility] DCPIA - Discharge Planning Initial Assessment Updated by [id number]: Nohemy Lipscomb on 06/26/18 7:38 pm * Is the patient Alert and Oriented? Yes * How many steps to enter\exit or inside your home? None * PCP Dr. Ayala * Preadmission Environment Home with Family * ADLs Partial Dependent * Equipment Cane Rolling Walker * Other Equipment Require assistance with transportation. Patient not able to drive. * List name and contact numbers for known caregivers / representatives who currently or will assist patient after discharge: Reba Garland - spouse - [phone] * Verbal permission to speak to the caregivers and representatives has been obtained from the patient. Yes * Community resources currently utilized Home Health * Please name any agencies selected above. [facility] HD T-TH-SAT - transports him to and from HD. * Additional services required to return to the preadmission environment? No * Can the patient safely return to the preadmission environment? Yes * Has this patient been hospitalized within the prior 30 days at any hospital? No Last DP export: 06/29/18 12:19 p Patient Name: SYDNIE GARLAND Page [id number] at 0747 All edits/amendments must be made on the electronic document DICTATION DATE: 06/30/18745 CHIN STRAP MAKER: JANICE 06/30/1846 RPT#: [id number] DC DATE:06/29/18 STATUS: DIS IN [facility] [address] [place] [address] END OF REPORT
== END 2018-06-29 13:00 | disposition home health service (06) | DRG 250 ==
LOC: D.ER 15:41 → D.EDHOLD 16:53 → D.M2 18:40
PROVIDERS: Emergency Medicine; Internal Medicine Interventional Cardiology; ADMIT Internal Medicine Nephrology; ATTEND Internal Medicine Nephrology
PROC: B2111ZZ Fluoroscopy of Multiple Coronary Arteries using Low Osmolar Contrast (ICD-10-PCS; 2018-06-27)
PROC: B2151ZZ Fluoroscopy of Left Heart using Low Osmolar Contrast (ICD-10-PCS; 2018-06-27)
PROC: 02703ZZ Dilation of Coronary Artery, One Artery, Percutaneous Approach (ICD-10-PCS; principal; 2018-06-27 13:00)
PROC: 4A023N7 Measurement of Cardiac Sampling and Pressure, Left Heart, Percutaneous Approach (ICD-10-PCS; 2018-06-27 13:00)
PROC: 5A1D70Z Performance of Urinary Filtration, Intermittent, Less than 6 Hours Per Day (ICD-10-PCS; 2018-06-28)
DX: I21.A9 Other myocardial infarction type (principal); N18.6 End stage renal disease; I12.0 Hypertensive chronic kidney disease with stage 5 chronic kidney disease or end stage renal disease; T82.855A Stenosis of coronary artery stent, initial encounter; E11.22 Type 2 diabetes mellitus with diabetic chronic kidney disease; Z99.2 Dependence on renal dialysis; I25.10 Atherosclerotic heart disease of native coronary artery without angina pectoris; I24.9 Acute ischemic heart disease, unspecified; I25.82 Chronic total occlusion of coronary artery; Y83.8 Other surgical procedures as the cause of abnormal reaction of the patient, or of later complication, without mention of misadventure at the time of the procedure; E78.5 Hyperlipidemia, unspecified